=== PATIENT | male | born 1935 | race Caucasian/White ===

== ENCOUNTER 2020-01-18 17:09 | Inpatient (IN) | payer MEDICARE ==
--- NOTE | 2020-01-18 17:18 | ERPHSYRPT ---
- History of Present Illness Time Seen by Provider: 01/18/20 17:15 Source: patient, EMS Exam Limitations: clinical condition Physician History: This is an 84-year-old male who presents with several day history of weakness. The fire department has been out to this persons home several times in the past week for lift assistance only. He has fallen several times. Patient has significant cardiac health issues. Patient has a history of chronic atrial fibrillation and is on Xarelto and metoprolol for this condition. He has no primary pulmonary disease per his report. Patient became more weak and more short of air today. EMS brought the patient in and stated that they did have him walk from the home into the ambulance and when they hooked him up to the oxygen monitor his room air oxygen saturation was in the 80s. He also had a fever of approximately 100.6 F. Patient has not taken any Tylenol or aspirin. he denies chest pain, abdominal pain, nausea vomiting diarrhea. Is not aware of any individuals that he has been around that has been tested positive for COVID-19. Patient is clinically positive patient for the coronavirus. Patient is not on any home oxygen therapy. Patient's primary care physician is Dr. Mi Gunter. His piston maker is Dr. Slaughter out of [facility]. Patient's spouse told EMS that the patient had pneumonia a year ago. She states his symptoms today are very similar. Timing/Duration: day(s) (Several), worse Activities at Onset: activity Severity of Dyspnea-Max: moderate Severity of Dyspnea-Current: moderate Possible Cause: occasional episodes Modifying Factors: Improves With: activity, exertion Associated Symptoms: constant, edema, fever, No cough, No chest pain/discomfort Allergies/Adverse Reactions: No Known Drug Allergies Allergy (Unverified 01/18/20 18:28) Home Medications: Aspirin 81 gm Chew [Baby Aspirin 81 mg Chew] 81 mg PO DAILY 01/18/20 [ History] Atorvastatin Calcium 20 mg PO DAILY 01/18/20 [History] Levothyroxine Sodium 50 mcg PO DAILY 01/18/20 [History] Metoprolol Tartrate 12.5 mg PO BID 01/18/20 [History] Omeprazole 20 mg PO DAILY 01/18/20 [History] Rivaroxaban [Xarelto] 20 mg PO DAILY 01/18/20 [History] Travel Risk - International Travel Have you traveled outside of the country in past 3 weeks: No Have you or anyone close to you been diagnosed with or: No Do your reside in a community with a known COVID-19 case?: Yes - Coronavirus Screening Symptoms experienced: fever(equal or > 100.4 F), respiratory symptoms ( i.e.Cought,shortness of breath), weakness - Review of Systems Constitutional: Fever, Weakness Eyes: No Symptoms Ears, Nose, & Throat: No Symptoms Respiratory: Dyspnea, Dyspnea on Exertion ([place]EL[place]), No Stridor, No Wheezing Cardiac: Edema, No Chest Pain, No Syncope Abdominal/Gastrointestinal: No Symptoms Genitourinary Symptoms: No Symptoms Musculoskeletal: No Symptoms Skin: No Symptoms Neurological: No Symptoms Psychological: No Symptoms Endocrine: No Symptoms Hematologic/Lymphatic: No Symptoms Immunological/Allergic: No Symptoms All Other Systems: Reviewed and Negative - Past Medical History Pertinent Past Medical History: Yes Neurological History: No Pertinent History ENT History: No Pertinent History - Nursing Vital Signs Nursing Vital Signs: Initial Vital Signs Temperature 100.6 F 01/18/20 18:00 Pulse Rate 109 H 01/18/20 18:00 Respiratory Rate 22 01/18/20 18:00 Blood Pressure 115/98 01/18/20 18:00 O2 Sat by Pulse Oximetry 94 L 01/18/20 18:00 Pain Scale Pain Intensity 0 - Physical Exam SpO2 Interpretation: hypoxic - Course Nursing assessment & vital signs reviewed: Yes EKG Interpreted by Me: RATE (98), A-fib, NORMAL AXIS, NORMAL INTERVALS, Right Bundle Branch Block Ordered Tests: Active Orders 24 hr Category Date Time Status Carroting Machine Offbearer STAT Care 01/18/20 17:20 Active EKG-ER Only STAT Care 01/18/20 17:20 Active Ware [Catheter-[place] Ware] STAT Care 01/18/20 18:59 Active IV Insertion STAT Care 01/18/20 17:20 Active Isolation, Initiate & Maintain Q4H Care 01/18/20 18:26 Active Oxygen-ED Only Nasal Cannula 2 lpm Care 01/18/20 17:20 Active CHEST 1 VIEW (PORTABLE) Stat Exams 01/18/20 17:19 Completed CHEST WITH CONTRAST [CT] Stat Exams 01/18/20 18:46 Taken ARTERIAL BLOOD GASES Stat Lab 01/18/20 17:20 Completed BLOOD CULTURE Stat Lab 01/18/20 17:50 Received CBC W DIFF Stat Lab 01/18/20 17:48 Completed CMP Stat Lab 01/18/20 17:48 Completed CULTURE,URINE Stat Lab 01/18/20 19:06 Received D-DIMER QUANTITATIVE Stat Lab 01/18/20 18:10 Completed Ferritin Stat Lab 01/18/20 17:48 Completed LDH-LACTATE DEHYDROGENASE Stat Lab 01/18/20 17:48 Completed Lactic Acid Stat Lab 01/18/20 17:19 Completed NT PRO BNP Stat Lab 01/18/20 17:48 Completed PROTIME WITH INR Stat Lab 01/18/20 18:10 Completed TROPONIN Q3H Lab 01/18/20 17:48 Completed TROPONIN Q3H Lab 01/18/20 20:37 Received TROPONIN Q3H Lab 01/18/20 23:30 Ordered TROPONIN Q3H Lab 01/19/20 02:30 Ordered TROPONIN Q3H Lab 01/19/20 05:30 Ordered UA W/RFX UR CULTURE Stat Lab 01/18/20 19:06 Completed Transfer Order Routine Transfer 01/18/20 Ordered Medication Summary Generic Name Dose Route Start Last Admin Trade Name Freq PRN Reason Stop Dose Admin Ceftriaxone Sodium/Dextrose 1 g in 50 mls @ 100 mls/hr 01/18/20 20:47 Rocephin 1 Gm-D5w 50 Ml Bag IV 01/18/20 21:16 STAT STA Azithromycin 500 mg in 250 mls @ 250 mls/hr 01/18/20 20:47 Zithromax 500 Mg/ 250 Ml Nacl Premix IV 01/18/20 21:46 STAT STA Discontinued Medications Generic Name Dose Route Start Last Admin Trade Name Freq PRN Reason Stop Dose Admin Furosemide 40 mg 01/18/20 18:46 01/18/20 18:57 Lasix 40 Mg/4 Ml IV 01/18/20 18:47 40 mg STAT ONE Administration Furosemide Confirm 01/18/20 18:49 Lasix 40 Mg/4 Ml Administered 01/18/20 18:50 Dose 40 mg .ROUTE .STK-MED ONE Azithromycin Confirm 01/18/20 20:54 Zithromax 500 Mg/ 250 Ml Nacl Premix Administered 01/18/20 20:55 Dose 500 mg in 250 mls @ ud IV .STK-MED ONE Ceftriaxone Sodium/Dextrose Confirm 01/18/20 20:54 Rocephin 1 Gm-D5w 50 Ml Bag Administered 01/18/20 20:55 Dose 1 g in 50 mls @ ud IV .STK-MED ONE Lab/Rad Data: Laboratory Result Diagrams 01/18/20 17:48 01/18/20 17:48 Laboratory Results 01/18/20 01/18/20 01/18/20 Range/Units 19:06 18:10 17:50 WBC (4.0-10.5) K/mm3 RBC (4.1-5.6) M/mm3 Hgb (12.5-18.0) gm/dl Hct (42-50) % MCV (78-100) fl MCH (26-32) pg MCHC (32-36) g/dl RDW (11.5-14.0) % Plt Count (150-450) K/mm3 MPV (7.5-11.0) fl Gran % (36.0-66.0) % Eos # (Auto) (0-0.5) Absolute Lymphs (auto) (1.0-4.6) Absolute Monos (auto) (0.0-1.3) Lymphocytes % (24.0-44.0) % Monocytes % (0.0-12.0) % Eosinophils % (0.00-5.0) % Basophils % (0.0-0.4) % Absolute Granulocytes (1.4-6.9) Basophils # (0-0.4) PT 33.4 H (8.83-12.87) SECONDS INR 2.89 (0.8-3.0) D-Dimer 1575 H* (215-500) ng/mL Puncture Site pCO2 (35-45) mmHg pO2 (75-100) mmHg Base Excess (-2.0-2.0) O2 Saturation (94-100) g/dF ABG pH (7.35-7.45) ABG HCO3 (22-28) ABG O2 Sat (Measured) (95-100) % Rolando Test A-a Gradient a/A Ratio Hemoglobin Carboxyhemoglobin (0.0-6.9) % THgb Methemoglobin (1.4-1.5) % Potassium (3.5-5.1) Temperature C POC O2 Flow Rate % Sodium (137-145) mmol/L Chloride (98-107) mmol/L Carbon Dioxide (22-30) mmol/L Anion Gap (5-15) MEQ/L BUN (9-20) mg/dL Creatinine (0.66-1.25) mg/dL Estimated GFR ML/MIN Glucose (74-106) mg/dL Lactic Acid (0.4-2.0) Calcium (8.4-10.2) mg/dL Ferritin (17.9-464) ng/mL Total Bilirubin (0.2-1.3) mg/dL AST (17-59) U/L ALT (0-50) U/L Alkaline Phosphatase (38-126) U/L Lactate Dehydrogenase (120-246) U/L Troponin I (0.000-0.034) ng/mL NT-Pro-B Natriuret Pep (0-1800) pg/mL Serum Total Protein (6.3-8.2) g/dL Albumin (3.5-5.0) g/dL Urine Color TAMMY (YELLOW) Urine Appearance CLEAR (CLEAR) Urine pH 5.0 (5-6) Ur Specific [place] 1.025 (1.005-1.025) Urine Protein 30 (Negative) Urine Ketones NEGATIVE (NEGATIVE) Urine Blood SMALL (0-5) [place]/ul Urine Nitrite NEGATIVE (NEGATIVE) Urine Bilirubin NEGATIVE (NEGATIVE) Urine Urobilinogen 2 (0-1) mg/dL Ur Leukocyte Esterase NEGATIVE (NEGATIVE) Urine WBC (Auto) 0-2 (0-5) /HPF Urine RBC (Auto) 3-5 (0-2) /HPF U Hyaline Cast (Auto) 3-5 (0-2) /LPF U Epithel Cells (Auto) NONE (FEW) /HPF Urine Bacteria (Auto) RARE (NEGATIVE) /HPF Unidentified Crystals 2-5 (NEGATIVE) /HPF Urine Mucus (Auto) SLIGHT (NEGATIVE) /HPF Urine Culture Reflexed ORDERED SEPARATELY (NO) Urine Glucose NEGATIVE (NEGATIVE) mg/dL Influenza Type A Ag NEGATIVE (NEGATIVE) Influenza Type B Ag NEGATIVE (NEGATIVE) RSV (PCR) NEGATIVE (Negative) 01/18/20 01/18/20 01/18/20 Range/Units 17:48 17:48 17:48 WBC (4.0-10.5) K/mm3 RBC (4.1-5.6) M/mm3 Hgb (12.5-18.0) gm/dl Hct (42-50) % MCV (78-100) fl MCH (26-32) pg MCHC (32-36) g/dl RDW (11.5-14.0) % Plt Count (150-450) K/mm3 MPV (7.5-11.0) fl Gran % (36.0-66.0) % Eos # (Auto) (0-0.5) Absolute Lymphs (auto) (1.0-4.6) Absolute Monos (auto) (0.0-1.3) Lymphocytes % (24.0-44.0) % Monocytes % (0.0-12.0) % Eosinophils % (0.00-5.0) % Basophils % (0.0-0.4) % Absolute Granulocytes (1.4-6.9) Basophils # (0-0.4) PT (8.83-12.87) SECONDS INR (0.8-3.0) D-Dimer (215-500) ng/mL Puncture Site pCO2 (35-45) mmHg pO2 (75-100) mmHg Base Excess (-2.0-2.0) O2 Saturation (94-100) g/dF ABG pH (7.35-7.45) ABG HCO3 (22-28) ABG O2 Sat (Measured) (95-100) % Rolando Test A-a Gradient a/A Ratio Hemoglobin Carboxyhemoglobin (0.0-6.9) % THgb Methemoglobin (1.4-1.5) % Potassium 4.0 (3.5-5.1) Temperature C POC O2 Flow Rate % Sodium 142 (137-145) mmol/L Chloride 109 H (98-107) mmol/L Carbon Dioxide 25 (22-30) mmol/L Anion Gap 12.4 (5-15) MEQ/L BUN 21 H (9-20) mg/dL Creatinine 0.97 (0.66-1.25) mg/dL Estimated GFR > 60.0 ML/MIN Glucose 110 H (74-106) mg/dL Lactic Acid (0.4-2.0) Calcium 8.6 (8.4-10.2) mg/dL Ferritin 141 (17.9-464) ng/mL Total Bilirubin 1.30 (0.2-1.3) mg/dL AST 37 (17-59) U/L ALT 24 (0-50) U/L Alkaline Phosphatase 135 H (38-126) U/L Lactate Dehydrogenase 346 H (120-246) U/L Troponin I 0.035 H (0.000-0.034) ng/mL NT-Pro-B Natriuret Pep 5950 H (0-1800) pg/mL Serum Total Protein 7.3 (6.3-8.2) g/dL Albumin 3.3 L (3.5-5.0) g/dL Urine Color (YELLOW) Urine Appearance (CLEAR) Urine pH (5-6) Ur Specific [place] (1.005-1.025) Urine Protein (Negative) Urine Ketones (NEGATIVE) Urine Blood (0-5) Donta/ul Urine Nitrite (NEGATIVE) Urine Bilirubin (NEGATIVE) Urine Urobilinogen (0-1) mg/dL Ur Leukocyte Esterase (NEGATIVE) Urine WBC (Auto) (0-5) /HPF Urine RBC (Auto) (0-2) /HPF U Hyaline Cast (Auto) (0-2) /LPF U Epithel Cells (Auto) (FEW) /HPF Urine Bacteria (Auto) (NEGATIVE) /HPF Unidentified Crystals (NEGATIVE) /HPF Urine Mucus (Auto) (NEGATIVE) /HPF Urine Culture Reflexed (NO) Urine Glucose (NEGATIVE) mg/dL Influenza Type A Ag (NEGATIVE) Influenza Type B Ag (NEGATIVE) RSV (PCR) (Negative) 01/18/20 01/18/20 01/18/20 Range/Units 17:48 17:20 17:19 WBC 12.8 H (4.0-10.5) K/mm3 RBC 3.55 L (4.1-5.6) M/mm3 Hgb 10.3 L (12.5-18.0) gm/dl Hct 33.5 L (42-50) % MCV 94.4 (78-100) fl MCH 29.0 (26-32) pg MCHC 30.7 L (32-36) g/dl RDW 14.9 H (11.5-14.0) % Plt Count 329 (150-450) K/mm3 MPV 9.7 (7.5-11.0) fl Gran % 89.0 H (36.0-66.0) % Eos # (Auto) 0.01 (0-0.5) Absolute Lymphs (auto) 0.35 L (1.0-4.6) Absolute Monos (auto) 1.03 (0.0-1.3) Lymphocytes % 2.7 L (24.0-44.0) % Monocytes % 8.0 (0.0-12.0) % Eosinophils % 0.1 (0.00-5.0) % Basophils % 0.2 (0.0-0.4) % Absolute Granulocytes 11.38 H (1.4-6.9) Basophils # 0.03 (0-0.4) PT (8.83-12.87) SECONDS INR (0.8-3.0) D-Dimer (215-500) ng/mL Puncture Site LEFT BRACHIAL pCO2 25 L (35-45) mmHg pO2 68 L (75-100) mmHg Base Excess 0.3 (-2.0-2.0) O2 Saturation 91.7 L (94-100) g/dF ABG pH 7.54 H (7.35-7.45) ABG HCO3 21.4 L (22-28) ABG O2 Sat (Measured) 96.3 (95-100) % Rolando Test NOT APPLICABLE A-a Gradient 214 a/A Ratio 0.24 Hemoglobin 10.2 Carboxyhemoglobin 3.2 (0.0-6.9) % THgb Methemoglobin 1.5 (1.4-1.5) % Potassium 4.1 (3.5-5.1) Temperature 37.0 C POC O2 Flow Rate 44 % Sodium (137-145) mmol/L Chloride (98-107) mmol/L Carbon Dioxide (22-30) mmol/L Anion Gap (5-15) MEQ/L BUN (9-20) mg/dL Creatinine (0.66-1.25) mg/dL Estimated GFR ML/MIN Glucose (74-106) mg/dL Lactic Acid 1.1 (0.4-2.0) Calcium (8.4-10.2) mg/dL Ferritin (17.9-464) ng/mL Total Bilirubin (0.2-1.3) mg/dL AST (17-59) U/L ALT (0-50) U/L Alkaline Phosphatase (38-126) U/L Lactate Dehydrogenase (120-246) U/L Troponin I (0.000-0.034) ng/mL NT-Pro-B Natriuret Pep (0-1800) pg/mL Serum Total Protein (6.3-8.2) g/dL Albumin (3.5-5.0) g/dL Urine Color (YELLOW) Urine Appearance (CLEAR) Urine pH (5-6) Ur Specific [place] (1.005-1.025) Urine Protein (Negative) Urine Ketones (NEGATIVE) Urine Blood (0-5) Donta/ul Urine Nitrite (NEGATIVE) Urine Bilirubin (NEGATIVE) Urine Urobilinogen (0-1) mg/dL Ur Leukocyte Esterase (NEGATIVE) Urine WBC (Auto) (0-5) /HPF Urine RBC (Auto) (0-2) /HPF U Hyaline Cast (Auto) (0-2) /LPF U Epithel Cells (Auto) (FEW) /HPF Urine Bacteria (Auto) (NEGATIVE) /HPF Unidentified Crystals (NEGATIVE) /HPF Urine Mucus (Auto) (NEGATIVE) /HPF Urine Culture Reflexed (NO) Urine Glucose (NEGATIVE) mg/dL Influenza Type A Ag (NEGATIVE) Influenza Type B Ag (NEGATIVE) RSV (PCR) (Negative) - Progress Progress: improved Air Movement: fair Progress Note: 01/18/20 17:44 Chest x-ray shows bilateral infiltrate with right side worse than left. There appears to be mild cardiomegaly with fluid present as well. 01/18/20 20:50 CAT scan of the chest with IV contrast reveals patchy bilateral groundglass densities and consolidation in a peripheral distribution suggestive of viral pneumonia. There is small bilateral pleural effusions. Impressions shows findings consistent with COVID-19 pneumonia. No evidence of pulmonary emboli. Medical decision making: This patient was discussed with Dr. Gupta. Patient has CAT scan findings consistent with a viral pneumonia/COVID-19 pneumonia. Clinically, the patient has symptoms consistent with viral pneumonia as well. I reviewed the patient history, condition, laboratory data, EKG, radiology reports with him. He wants to start the patient on Rocephin and azithromycin intravenously. Some of the patient's that have a presented with COVID-19 symptoms of actually turned out to be bacterial pneumonia rather than viral pneumonia. I discussed in detail with the patient regarding his results. I discussed with him his DNR status. Patient is DNR. He does not want to be intubated, he does not want any form of mechanical ventilation, he does not want CPR or defibrillation. Laurie these issues with the patient spouse as well. Blood Culture(s) Obtained: Yes Antibiotics given: Yes Discussed with Dr.: Hess Counseled pt/family regarding: lab results, diagnosis, rad results - Departure Departure Disposition: In-patient Admission Clinical Impression: Suspected COVID-19 virus infection, Hypoxia, Pneumonia, Congestive heart failure Condition: Fair Critical Care Time: Yes Critical Care Time(excluding separately billable procedures): Critical 75-104 mins Referrals: MI GUNTER DO [Primary Care Provider] - Instructions: Heart Failure
[2020-01-18 17:46] LABS: A-aADO2 214; ABG HEMOGLOBIN 10.2; ABG POTASSIUM 4.1 (3.5-5.1); ABG SITE LEFT BRACHIAL; ARTERIAL BLD GAS O2 SATURATION 96.3 % (95-100); ARTERIAL BLOOD GAS BASE EXCESS 0.3 (-2.0-2.0); ARTERIAL BLOOD GAS FIO2 44 %; ARTERIAL BLOOD GAS PCO2 25 mmHg (35-45); ARTERIAL BLOOD GAS PO2 68 mmHg (75-100); ARTERIAL BLOOD GAS pH 7.54 (7.35-7.45); CARBOXYHEMOGLOBIN 3.2 % THgb (0.0-6.9); HCO3- 21.4 (22-28); HGB O2 SAT 91.7 g/dF (94-100); Methhemoglobin 1.5 % (1.4-1.5); paO2 pAO1 0.24
[2020-01-18 17:54] LABS: Absolute Neutrophil Ct (ANC) 11.38 (1.4-6.9); BASOPHIL % 0.2 % (0.0-0.4); Basophil (Absolute #) 0.03 (0-0.4); Eosinophil % 0.1 % (0.00-5.0); Eosinophil (Absolute #) 0.01 (0-0.5); Hematocrit 33.5 % (42-50); Hemoglobin 10.3 gm/dl (12.5-18.0); Lymphocyte (Absolute #) 0.35 (1.0-4.6); Lymphocytes % 2.7 % (24.0-44.0); Mean Cell Volume 94.4 fl (78-100); Mean Corpuscular Hgb Concent. 30.7 g/dl (32-36); Mean Platelet Volume 9.7 fl (7.5-11.0); Monocyte (Absolute #) 1.03 (0.0-1.3); Platelet Count 329 K/mm3 (150-450); Red Blood Count 3.55 M/mm3 (4.1-5.6); Red Cell Distribution Width 14.9 % (11.5-14.0); White Blood Count 12.8 K/mm3 (4.0-10.5)
[2020-01-18 18:15] LABS: ALBUMIN 3.3 g/dL (3.5-5.0); ALKALINE PHOSPHATASE 135 U/L (38-126); ANION GAP 12.4 MEQ/L (5-15); BLOOD UREA NITROGEN 21 mg/dL (9-20); CHLORIDE 109 mmol/L (98-107); Calcium 8.6 mg/dL (8.4-10.2); Carbon Dioxide 25 mmol/L (22-30); Creatinine 1 0.97 mg/dL (0.66-1.25); Glucose 110 mg/dL (74-106); LDH-LACTATE DEHYDROGENASE 346 U/L (120-246); NT PRO BNP 5950 pg/mL (0-1800); SGOT/AST 37 U/L (17-59); SGPT/ALT 24 U/L (0-50); SODIUM 142 mmol/L (137-145); Total Protein 7.3 g/dL (6.3-8.2)
[2020-01-18 18:24] LABS: INFLUENZA A NEGATIVE (NEGATIVE); INFLUENZA B NEGATIVE (NEGATIVE); RESPIRATORY SYNCTIAL VIRUS NEGATIVE (Negative)
[2020-01-18 18:27] LABS: INR 2.89 (0.8-3.0); PROTIME 33.4 SECONDS (8.83-12.87)
[2020-01-18] MEDS ORDERED: Lasix 40 MG/4 ML IV ONE (18:46)
[2020-01-18] MEDS ORDERED: Lasix 40 MG/4 ML ONE (18:49)
[2020-01-18 19:27] LABS: Appearance CLEAR (CLEAR); Bacteria RARE /HPF (NEGATIVE); Bilirubin NEGATIVE (NEGATIVE); Blood SMALL Ery/ul (0-5); Glucose NEGATIVE (NEGATIVE); Ketones NEGATIVE (NEGATIVE); Leukocyte Esterase NEGATIVE (NEGATIVE); Mucus SLIGHT /HPF (NEGATIVE); Nitrite NEGATIVE (NEGATIVE); Protein,Urine Dip 30 (Negative); Specific Gravity 1.025 (1.005-1.025); Urobilinogen 2 mg/dL (0-1); WBC 0-2 /HPF (0-5)
--- NOTE | 2020-01-18 20:15 | XRAY ---
Indication: Short of breath and fever. Suspect COVID 19. Comparison: None Portable chest demonstrates diffuse bilateral airspace disease, right greater than left. No large effusion. Heart is borderline enlarged with chunky mediastinal calcified nodes. Bony thorax demonstrates mild osteopenia, moderate degenerative changes, moderate dextrorotoscoliosis, and right shoulder arthroplasty Impression: Diffuse bilateral airspace disease.
[2020-01-18] MEDS ORDERED: Zithromax 500 MG/ 250 ML NaCl Premix 500 MG/250 ML IVPB IV STA (20:47)
[2020-01-18] MEDS ORDERED: ROCEPHIN 1 Gm-D5w 50 ml Bag** 1 G/50 ML IVPB IV STA (20:47)
[2020-01-18] MEDS ORDERED: ROCEPHIN 1 Gm-D5w 50 ml Bag** 1 G/50 ML IVPB IV ONE (20:54)
[2020-01-18] MEDS ORDERED: Zithromax 500 MG/ 250 ML NaCl Premix 500 MG/250 ML IVPB IV ONE (20:54)
[2020-01-18] MEDS ORDERED: Zofran 4 MG/2 ML VIAL IV PRN (23:05)
[2020-01-18] MEDS ORDERED: VENTOLIN COMMON CANISTER IH PRN (23:05)
[2020-01-18] MEDS ORDERED: TYLENOL 325 MG PO PRN (23:05)
[2020-01-19] MEDS: Lasix 40 MG/4 ML IV SCH ×3 (01:57→23:27)
[2020-01-19 05:58] LABS: A-aADO2 207; ABG HEMOGLOBIN 10.2; ABG POTASSIUM 3.6 (3.5-5.1); ABG SITE LEFT BRACHIAL; ARTERIAL BLD GAS O2 SATURATION 96.1 % (95-100); ARTERIAL BLOOD GAS FIO2 44 %; ARTERIAL BLOOD GAS PCO2 29 mmHg (35-45); ARTERIAL BLOOD GAS PO2 70 mmHg (75-100); ARTERIAL BLOOD GAS pH 7.51 (7.35-7.45); CARBOXYHEMOGLOBIN 1.5 % THgb (0.0-6.9); HCO3- 23.1 (22-28); HGB O2 SAT 93.6 g/dF (94-100); Methhemoglobin 1.1 % (1.4-1.5); paO2 pAO1 0.25
[2020-01-19 06:13] LABS: ALBUMIN 2.7 g/dL (3.5-5.0); ALKALINE PHOSPHATASE 116 U/L (38-126); ANION GAP 12.3 MEQ/L (5-15); BLOOD UREA NITROGEN 18 mg/dL (9-20); CHLORIDE 106 mmol/L (98-107); Calcium 8.2 mg/dL (8.4-10.2); Carbon Dioxide 26 mmol/L (22-30); Creatinine 1 0.88 mg/dL (0.66-1.25); Glucose 89 mg/dL (74-106); NT PRO BNP 5660 pg/mL (0-1800); PREALBUMIN 6.51 mg/dL (17.6-36.0); Potassium 3.7 mmol/L (3.5-5.1); SGOT/AST 47 U/L (17-59); SGPT/ALT 26 U/L (0-50); SODIUM 141 mmol/L (137-145); Total Protein 6.3 g/dL (6.3-8.2)
[2020-01-19 06:18] LABS: Absolute Neutrophil Ct (ANC) 9.98 (1.4-6.9); BASOPHIL % 0.2 % (0.0-0.4); Basophil (Absolute #) 0.03 (0-0.4); Eosinophil % 0.8 % (0.00-5.0); Hematocrit 33.1 % (42-50); Hemoglobin 10.2 gm/dl (12.5-18.0); Lymphocyte (Absolute #) 0.99 (1.0-4.6); Lymphocytes % 8.2 % (24.0-44.0); Mean Cell Volume 94.3 fl (78-100); Mean Corpuscular Hemoglobin 29.1 pg (26-32); Mean Corpuscular Hgb Concent. 30.8 g/dl (32-36); Mean Platelet Volume 10.1 fl (7.5-11.0); Monocyte (Absolute #) 1.03 (0.0-1.3); Monocytes % 8.5 % (0.0-12.0); Neutrophil % 82.3 % (36.0-66.0); Platelet Count 331 K/mm3 (150-450); Red Blood Count 3.51 M/mm3 (4.1-5.6); Red Cell Distribution Width 14.9 % (11.5-14.0); White Blood Count 12.1 K/mm3 (4.0-10.5)
--- NOTE | 2020-01-19 08:13 | XRAY ---
Indication: Fever and weakness. Pneumonia. Suspect: COVID 19. Multiple contiguous axial images obtained through the chest using 80 cc Isovue 370 contrast and PE protocol. Elevated d-dimer. Comparison: None There is good opacification of the pulmonary arteries to include the lobar and segmental branches. No filling defect/pulmonary embolus. Heart is enlarged. Aorta is mildly arteriosclerotic without aneurysm/dissection. [place] paratracheal calcified nodes. No pathologic lymphadenopathy. Large hiatal hernia with intrathoracic stomach. Lungs demonstrates diffuse bilateral patchy non-rounded airspace opacities, several appearing consolidated. This is greatest throughout the right lung along with small right effusion. Lung features can be seen with COVID 19 pneumonia, though are nonspecific and can occur with a variety of infectious and noninfectious processes. Medial left lower lobe compressive atelectasis secondary to large hiatal hernia. Bony thorax demonstrates osteopenia, outside to moderate multilevel degenerative spondylosis, moderate dextrorotoscoliosis centered at T10, right shoulder arthroplasty, and moderate/advanced left shoulder degenerative arthropathy. Limited upper abdomen demonstrates multiple round hypodense lesions favoring cysts, largest 2.8 cm in the inferior right lobe. Also splenic calcified granulomas. Impression: 1. Negative pulmonary embolus. 2. Diffuse bilateral non-rounded airspace opacities with multifocal consolidations and small right effusion. Findings can occur with a variety of infectious and noninfectious processes. COVID 19 imaging classification per Society of Thoracic Radiology/ACR/RSNA is Indeterminate Appearance. 3. Incidental cardiomegaly, large hiatal hernia with intrathoracic stomach, hepatic cysts, chronic bony findings, and evidence for old granulomatous disease. Comment: Preliminary interpretation was made by [facility]. No critical discrepancy.
--- NOTE | 2020-01-19 09:48 | PCM.HP ---
History of Present Illness - Chief Complaint Chief Complaint: Covid R/O, CHF, Pneumonia Date: 01/19/20 History of Present Illness: is a 84 year old male. Presented to ER last night with increased weakness for the past several days, noted to have a temp as well. Pt. notes mild sob, otherwise mostly negative ros. - Review of Systems Constitutional: Fever Eyes: No Symptoms Ears, Nose, & Throat: No Symptoms Respiratory: Short Of Breath Cardiac: No Chest Pain, No Edema, No Syncope Abdominal/Gastrointestinal: No Abdominal Pain, No Nausea, No Vomiting, No Diarrhea Genitourinary Symptoms: No Dysuria Musculoskeletal: Joint Pain Skin: No Rash Neurological: No Dizziness, No Focal Weakness, No Sensory Changes Medications & Allergies Home Medications: Home Medication List Aspirin 81 gm Chew [Baby Aspirin 81 mg Chew] 81 mg PO DAILY 01/18/20 [ History Confirmed 01/18/20] Atorvastatin Calcium 20 mg PO DAILY 01/18/20 [History Confirmed 01/18/20] Levothyroxine Sodium 50 mcg PO DAILY 01/18/20 [History Confirmed 01/18/20] Metoprolol Tartrate 12.5 mg PO BID 01/18/20 [History Confirmed 01/18/20] Omeprazole 20 mg PO DAILY 01/18/20 [History Confirmed 01/18/20] Rivaroxaban [Xarelto] 20 mg PO DAILY 01/18/20 [History Confirmed 01/18/20] Amiodarone HCl 01/19/20 [History] Benazepril/Hydrochlorothiazide [Benazepril-Hctz 5-6.25 mg Tab] 01/19/20 [ History] Allergies/Adverse Reactions: Allergies Allergy/AdvReac Type Severity Reaction Status Date / Time No Known Drug Allergies Allergy Unverified 01/19/20 02:44 - Past Medical History Past Medical History: Yes Neurological History: No Pertinent History ENT History: No Pertinent History Cardiac History: Arrhythmia, Coronary Artery Disease Respiratory History: Pneumonia Musculoskelatal History: Arthritis GI Medical History: No Pertinent History History: No Pertinent History Pyscho-Social History: No Pertinent History Male Reproductive Disorders: No Pertinent History Comment: Chronic A-fib, History of recurrent Pneumonia - Past Surgical History Past Surgical History: Yes Neuro Surgical History: No Pertinent History Cardiac History: Cardiac Catheterization Respiratory Surgery: No Pertinent History GI Surgical History: Appendectomy Genitourinary Surgical Hx: No Pertinent History Musculskeletal Surgical Hx: Joint Replacement Male Surgical History: No Pertinent History Other Surgical History: Total left hip replacement, right shoulder replacement. - Social History Smoking Status: Former smoker Exposure to second hand smoke: No Alcohol: None Drug Use: none - Physical Exam Vital Signs: Vital Signs - 24 hr Temp Pulse Resp BP Pulse Ox 01/19/20 09:33 105 H 27 H 97 01/19/20 09:00 30 H 01/19/20 08:20 104 H 22 95 01/19/20 08:00 24 01/19/20 07:41 99.0 F 136 H 24 146/86 94 L 01/19/20 06:45 26 H 01/19/20 06:00 22 01/19/20 05:00 22 01/19/20 04:59 113 H 22 91 L 01/19/20 04:00 25 H 01/19/20 03:57 98.3 F 108 H 25 H 162/88 90 L 01/19/20 02:44 24 01/19/20 01:59 107 H 23 98 01/19/20 01:52 24 01/19/20 01:17 100.0 F 111 H 30 H 119/82 92 L 01/19/20 00:15 111 H 30 H 92 L 01/18/20 23:09 100.0 F 111 H 20 119/82 96 01/18/20 23:05 92 L 01/18/20 22:11 107 H 18 105/80 94 L 01/18/20 21:13 99.9 F 123 H 30 H 118/94 94 L 01/18/20 20:26 99.9 F 135 H 25 H 161/92 96 01/18/20 18:47 100.8 F 119 H 22 130/98 100 01/18/20 18:09 22 94 L 01/18/20 18:00 100.6 F 109 H 22 115/98 94 L Oxygen-Last 24 hours Oxygen Flowrate (L/min)-RT 15 Oxygen Flowrate (L/min)-RT 6 General Appearance: mild distress Neurologic Exam: alert, cooperative Eye Exam: eyes nml inspection Ears, Nose, Throat Exam: normal ENT inspection, pharynx normal, moist mucous membranes Neck Exam: normal inspection Respiratory Exam: diminished breath sounds, crackles/rales, rhonchi Cardiovascular Exam: tachycardia, irregular Gastrointestinal/Abdomen Exam: soft, normal bowel sounds, No tenderness, No distention Rectal Exam: deferred Extremity Exam: pedal edema Results - Labs Lab/Micro Results: Lab Results-Last 24 Hours 01/18/20 01/18/20 01/18/20 Range/Units 17:19 17:20 17:48 WBC 12.8 H (4.0-10.5) K/mm3 RBC 3.55 L (4.1-5.6) M/mm3 Hgb 10.3 L (12.5-18.0) gm/dl Hct 33.5 L (42-50) % MCV 94.4 (78-100) fl MCH 29.0 (26-32) pg MCHC 30.7 L (32-36) g/dl RDW 14.9 H (11.5-14.0) % Plt Count 329 (150-450) K/mm3 MPV 9.7 (7.5-11.0) fl Gran % 89.0 H (36.0-66.0) % Eos # (Auto) 0.01 (0-0.5) Absolute Lymphs (auto) 0.35 L (1.0-4.6) Absolute Monos (auto) 1.03 (0.0-1.3) Lymphocytes % 2.7 L (24.0-44.0) % Monocytes % 8.0 (0.0-12.0) % Eosinophils % 0.1 (0.00-5.0) % Basophils % 0.2 (0.0-0.4) % Absolute Granulocytes 11.38 H (1.4-6.9) Basophils # 0.03 (0-0.4) PT (8.83-12.87) SECONDS INR (0.8-3.0) D-Dimer (215-500) ng/mL Puncture Site LEFT BRACHIAL pCO2 25 L (35-45) mmHg pO2 68 L (75-100) mmHg Base Excess 0.3 (-2.0-2.0) O2 Saturation 91.7 L (94-100) g/dF ABG pH 7.54 H (7.35-7.45) ABG HCO3 21.4 L (22-28) ABG O2 Sat (Measured) 96.3 (95-100) % Rolando Test NOT APPLICABLE A-a Gradient 214 a/A Ratio 0.24 Hemoglobin 10.2 Carboxyhemoglobin 3.2 (0.0-6.9) % THgb Methemoglobin 1.5 (1.4-1.5) % Potassium 4.1 (3.5-5.1) Temperature 37.0 C POC O2 Flow Rate 44 % Sodium (137-145) mmol/L Chloride (98-107) mmol/L Carbon Dioxide (22-30) mmol/L Anion Gap (5-15) MEQ/L BUN (9-20) mg/dL Creatinine (0.66-1.25) mg/dL Estimated GFR ML/MIN Glucose (74-106) mg/dL Lactic Acid 1.1 (0.4-2.0) Calcium (8.4-10.2) mg/dL Ferritin (17.9-464) ng/mL Total Bilirubin (0.2-1.3) mg/dL AST (17-59) U/L ALT (0-50) U/L Alkaline Phosphatase (38-126) U/L Lactate Dehydrogenase (120-246) U/L Troponin I (0.000-0.034) ng/mL NT-Pro-B Natriuret Pep (0-1800) pg/mL Serum Total Protein (6.3-8.2) g/dL Albumin (3.5-5.0) g/dL Prealbumin (17.6-36.0) mg/dL Urine Color (YELLOW) Urine Appearance (CLEAR) Urine pH (5-6) Ur Specific Marissa (1.005-1.025) Urine Protein (Negative) Urine Ketones (NEGATIVE) Urine Blood (0-5) Donta/ul Urine Nitrite (NEGATIVE) Urine Bilirubin (NEGATIVE) Urine Urobilinogen (0-1) mg/dL Ur Leukocyte Esterase (NEGATIVE) Urine WBC (Auto) (0-5) /HPF Urine RBC (Auto) (0-2) /HPF U Hyaline Cast (Auto) (0-2) /LPF U Epithel Cells (Auto) (FEW) /HPF Urine Bacteria (Auto) (NEGATIVE) /HPF Unidentified Crystals (NEGATIVE) /HPF Urine Mucus (Auto) (NEGATIVE) /HPF Urine Culture Reflexed (NO) Urine Glucose (NEGATIVE) mg/dL Influenza Type A Ag (NEGATIVE) Influenza Type B Ag (NEGATIVE) RSV (PCR) (Negative) 01/18/20 01/18/20 01/18/20 Range/Units 17:48 17:48 17:48 WBC (4.0-10.5) K/mm3 RBC (4.1-5.6) M/mm3 Hgb (12.5-18.0) gm/dl Hct (42-50) % MCV (78-100) fl MCH (26-32) pg MCHC (32-36) g/dl RDW (11.5-14.0) % Plt Count (150-450) K/mm3 MPV (7.5-11.0) fl Gran % (36.0-66.0) % Eos # (Auto) (0-0.5) Absolute Lymphs (auto) (1.0-4.6) Absolute Monos (auto) (0.0-1.3) Lymphocytes % (24.0-44.0) % Monocytes % (0.0-12.0) % Eosinophils % (0.00-5.0) % Basophils % (0.0-0.4) % Absolute Granulocytes (1.4-6.9) Basophils # (0-0.4) PT (8.83-12.87) SECONDS INR (0.8-3.0) D-Dimer (215-500) ng/mL Puncture Site pCO2 (35-45) mmHg pO2 (75-100) mmHg Base Excess (-2.0-2.0) O2 Saturation (94-100) g/dF ABG pH (7.35-7.45) ABG HCO3 (22-28) ABG O2 Sat (Measured) (95-100) % Rolando Test A-a Gradient a/A Ratio Hemoglobin Carboxyhemoglobin (0.0-6.9) % THgb Methemoglobin (1.4-1.5) % Potassium 4.0 (3.5-5.1) Temperature C POC O2 Flow Rate % Sodium 142 (137-145) mmol/L Chloride 109 H (98-107) mmol/L Carbon Dioxide 25 (22-30) mmol/L Anion Gap 12.4 (5-15) MEQ/L BUN 21 H (9-20) mg/dL Creatinine 0.97 (0.66-1.25) mg/dL Estimated GFR > 60.0 ML/MIN Glucose 110 H (74-106) mg/dL Lactic Acid (0.4-2.0) Calcium 8.6 (8.4-10.2) mg/dL Ferritin 141 (17.9-464) ng/mL Total Bilirubin 1.30 (0.2-1.3) mg/dL AST 37 (17-59) U/L ALT 24 (0-50) U/L Alkaline Phosphatase 135 H (38-126) U/L Lactate Dehydrogenase 346 H (120-246) U/L Troponin I 0.035 H (0.000-0.034) ng/mL NT-Pro-B Natriuret Pep 5950 H (0-1800) pg/mL Serum Total Protein 7.3 (6.3-8.2) g/dL Albumin 3.3 L (3.5-5.0) g/dL Prealbumin (17.6-36.0) mg/dL Urine Color (YELLOW) Urine Appearance (CLEAR) Urine pH (5-6) Ur Specific Marissa (1.005-1.025) Urine Protein (Negative) Urine Ketones (NEGATIVE) Urine Blood (0-5) Donta/ul Urine Nitrite (NEGATIVE) Urine Bilirubin (NEGATIVE) Urine Urobilinogen (0-1) mg/dL Ur Leukocyte Esterase (NEGATIVE) Urine WBC (Auto) (0-5) /HPF Urine RBC (Auto) (0-2) /HPF U Hyaline Cast (Auto) (0-2) /LPF U Epithel Cells (Auto) (FEW) /HPF Urine Bacteria (Auto) (NEGATIVE) /HPF Unidentified Crystals (NEGATIVE) /HPF Urine Mucus (Auto) (NEGATIVE) /HPF Urine Culture Reflexed (NO) Urine Glucose (NEGATIVE) mg/dL Influenza Type A Ag (NEGATIVE) Influenza Type B Ag (NEGATIVE) RSV (PCR) (Negative) 01/18/20 01/18/20 01/18/20 Range/Units 17:50 18:10 19:06 WBC (4.0-10.5) K/mm3 RBC (4.1-5.6) M/mm3 Hgb (12.5-18.0) gm/dl Hct (42-50) % MCV (78-100) fl MCH (26-32) pg MCHC (32-36) g/dl RDW (11.5-14.0) % Plt Count (150-450) K/mm3 MPV (7.5-11.0) fl Gran % (36.0-66.0) % Eos # (Auto) (0-0.5) Absolute Lymphs (auto) (1.0-4.6) Absolute Monos (auto) (0.0-1.3) Lymphocytes % (24.0-44.0) % Monocytes % (0.0-12.0) % Eosinophils % (0.00-5.0) % Basophils % (0.0-0.4) % Absolute Granulocytes (1.4-6.9) Basophils # (0-0.4) PT 33.4 H (8.83-12.87) SECONDS INR 2.89 (0.8-3.0) D-Dimer 1575 H* (215-500) ng/mL Puncture Site pCO2 (35-45) mmHg pO2 (75-100) mmHg Base Excess (-2.0-2.0) O2 Saturation (94-100) g/dF ABG pH (7.35-7.45) ABG HCO3 (22-28) ABG O2 Sat (Measured) (95-100) % Rolando Test A-a Gradient a/A Ratio Hemoglobin Carboxyhemoglobin (0.0-6.9) % THgb Methemoglobin (1.4-1.5) % Potassium (3.5-5.1) Temperature C POC O2 Flow Rate % Sodium (137-145) mmol/L Chloride (98-107) mmol/L Carbon Dioxide (22-30) mmol/L Anion Gap (5-15) MEQ/L BUN (9-20) mg/dL Creatinine (0.66-1.25) mg/dL Estimated GFR ML/MIN Glucose (74-106) mg/dL Lactic Acid (0.4-2.0) Calcium (8.4-10.2) mg/dL Ferritin (17.9-464) ng/mL Total Bilirubin (0.2-1.3) mg/dL AST (17-59) U/L ALT (0-50) U/L Alkaline Phosphatase (38-126) U/L Lactate Dehydrogenase (120-246) U/L Troponin I (0.000-0.034) ng/mL NT-Pro-B Natriuret Pep (0-1800) pg/mL Serum Total Protein (6.3-8.2) g/dL Albumin (3.5-5.0) g/dL Prealbumin (17.6-36.0) mg/dL Urine Color TAMMY (YELLOW) Urine Appearance CLEAR (CLEAR) Urine pH 5.0 (5-6) Ur Specific Marissa 1.025 (1.005-1.025) Urine Protein 30 (Negative) Urine Ketones NEGATIVE (NEGATIVE) Urine Blood SMALL (0-5) Donta/ul Urine Nitrite NEGATIVE (NEGATIVE) Urine Bilirubin NEGATIVE (NEGATIVE) Urine Urobilinogen 2 (0-1) mg/dL Ur Leukocyte Esterase NEGATIVE (NEGATIVE) Urine WBC (Auto) 0-2 (0-5) /HPF Urine RBC (Auto) 3-5 (0-2) /HPF U Hyaline Cast (Auto) 3-5 (0-2) /LPF U Epithel Cells (Auto) NONE (FEW) /HPF Urine Bacteria (Auto) RARE (NEGATIVE) /HPF Unidentified Crystals 2-5 (NEGATIVE) /HPF Urine Mucus (Auto) SLIGHT (NEGATIVE) /HPF Urine Culture Reflexed ORDERED SEPARATELY (NO) Urine Glucose NEGATIVE (NEGATIVE) mg/dL Influenza Type A Ag NEGATIVE (NEGATIVE) Influenza Type B Ag NEGATIVE (NEGATIVE) RSV (PCR) NEGATIVE (Negative) 01/18/20 01/18/20 01/19/20 Range/Units 20:37 23:39 02:30 WBC (4.0-10.5) K/mm3 RBC (4.1-5.6) M/mm3 Hgb (12.5-18.0) gm/dl Hct (42-50) % MCV (78-100) fl MCH (26-32) pg MCHC (32-36) g/dl RDW (11.5-14.0) % Plt Count (150-450) K/mm3 MPV (7.5-11.0) fl Gran % (36.0-66.0) % Eos # (Auto) (0-0.5) Absolute Lymphs (auto) (1.0-4.6) Absolute Monos (auto) (0.0-1.3) Lymphocytes % (24.0-44.0) % Monocytes % (0.0-12.0) % Eosinophils % (0.00-5.0) % Basophils % (0.0-0.4) % Absolute Granulocytes (1.4-6.9) Basophils # (0-0.4) PT (8.83-12.87) SECONDS INR (0.8-3.0) D-Dimer (215-500) ng/mL Puncture Site pCO2 (35-45) mmHg pO2 (75-100) mmHg Base Excess (-2.0-2.0) O2 Saturation (94-100) g/dF ABG pH (7.35-7.45) ABG HCO3 (22-28) ABG O2 Sat (Measured) (95-100) % Rolando Test A-a Gradient a/A Ratio Hemoglobin Carboxyhemoglobin (0.0-6.9) % THgb Methemoglobin (1.4-1.5) % Potassium (3.5-5.1) Temperature C POC O2 Flow Rate % Sodium (137-145) mmol/L Chloride (98-107) mmol/L Carbon Dioxide (22-30) mmol/L Anion Gap (5-15) MEQ/L BUN (9-20) mg/dL Creatinine (0.66-1.25) mg/dL Estimated GFR ML/MIN Glucose (74-106) mg/dL Lactic Acid (0.4-2.0) Calcium (8.4-10.2) mg/dL Ferritin (17.9-464) ng/mL Total Bilirubin (0.2-1.3) mg/dL AST (17-59) U/L ALT (0-50) U/L Alkaline Phosphatase (38-126) U/L Lactate Dehydrogenase (120-246) U/L Troponin I 0.038 H* 0.039 H* 0.030 (0.000-0.034) ng/mL NT-Pro-B Natriuret Pep (0-1800) pg/mL Serum Total Protein (6.3-8.2) g/dL Albumin (3.5-5.0) g/dL Prealbumin (17.6-36.0) mg/dL Urine Color (YELLOW) Urine Appearance (CLEAR) Urine pH (5-6) Ur Specific Marissa (1.005-1.025) Urine Protein (Negative) Urine Ketones (NEGATIVE) Urine Blood (0-5) Donta/ul Urine Nitrite (NEGATIVE) Urine Bilirubin (NEGATIVE) Urine Urobilinogen (0-1) mg/dL Ur Leukocyte Esterase (NEGATIVE) Urine WBC (Auto) (0-5) /HPF Urine RBC (Auto) (0-2) /HPF U Hyaline Cast (Auto) (0-2) /LPF U Epithel Cells (Auto) (FEW) /HPF Urine Bacteria (Auto) (NEGATIVE) /HPF Unidentified Crystals (NEGATIVE) /HPF Urine Mucus (Auto) (NEGATIVE) /HPF Urine Culture Reflexed (NO) Urine Glucose (NEGATIVE) mg/dL Influenza Type A Ag (NEGATIVE) Influenza Type B Ag (NEGATIVE) RSV (PCR) (Negative) 01/19/20 01/19/20 01/19/20 Range/Units 05:25 05:25 05:25 WBC 12.1 H (4.0-10.5) K/mm3 RBC 3.51 L (4.1-5.6) M/mm3 Hgb 10.2 L (12.5-18.0) gm/dl Hct 33.1 L (42-50) % MCV 94.3 (78-100) fl MCH 29.1 (26-32) pg MCHC 30.8 L (32-36) g/dl RDW 14.9 H (11.5-14.0) % Plt Count 331 (150-450) K/mm3 MPV 10.1 (7.5-11.0) fl Gran % 82.3 H (36.0-66.0) % Eos # (Auto) 0.10 (0-0.5) Absolute Lymphs (auto) 0.99 L (1.0-4.6) Absolute Monos (auto) 1.03 (0.0-1.3) Lymphocytes % 8.2 L (24.0-44.0) % Monocytes % 8.5 (0.0-12.0) % Eosinophils % 0.8 (0.00-5.0) % Basophils % 0.2 (0.0-0.4) % Absolute Granulocytes 9.98 H (1.4-6.9) Basophils # 0.03 (0-0.4) PT (8.83-12.87) SECONDS INR (0.8-3.0) D-Dimer (215-500) ng/mL Puncture Site pCO2 (35-45) mmHg pO2 (75-100) mmHg Base Excess (-2.0-2.0) O2 Saturation (94-100) g/dF ABG pH (7.35-7.45) ABG HCO3 (22-28) ABG O2 Sat (Measured) (95-100) % Rolando Test A-a Gradient a/A Ratio Hemoglobin Carboxyhemoglobin (0.0-6.9) % THgb Methemoglobin (1.4-1.5) % Potassium 3.7 (3.5-5.1) Temperature C POC O2 Flow Rate % Sodium 141 (137-145) mmol/L Chloride 106 (98-107) mmol/L Carbon Dioxide 26 (22-30) mmol/L Anion Gap 12.3 (5-15) MEQ/L BUN 18 (9-20) mg/dL Creatinine 0.88 (0.66-1.25) mg/dL Estimated GFR > 60.0 ML/MIN Glucose 89 (74-106) mg/dL Lactic Acid (0.4-2.0) Calcium 8.2 L (8.4-10.2) mg/dL Ferritin (17.9-464) ng/mL Total Bilirubin 1.00 (0.2-1.3) mg/dL AST 47 (17-59) U/L ALT 26 (0-50) U/L Alkaline Phosphatase 116 (38-126) U/L Lactate Dehydrogenase (120-246) U/L Troponin I 0.032 (0.000-0.034) ng/mL NT-Pro-B Natriuret Pep 5660 H (0-1800) pg/mL Serum Total Protein 6.3 (6.3-8.2) g/dL Albumin 2.7 L (3.5-5.0) g/dL Prealbumin 6.51 L (17.6-36.0) mg/dL Urine Color (YELLOW) Urine Appearance (CLEAR) Urine pH (5-6) Ur Specific Marissa (1.005-1.025) Urine Protein (Negative) Urine Ketones (NEGATIVE) Urine Blood (0-5) Donta/ul Urine Nitrite (NEGATIVE) Urine Bilirubin (NEGATIVE) Urine Urobilinogen (0-1) mg/dL Ur Leukocyte Esterase (NEGATIVE) Urine WBC (Auto) (0-5) /HPF Urine RBC (Auto) (0-2) /HPF U Hyaline Cast (Auto) (0-2) /LPF U Epithel Cells (Auto) (FEW) /HPF Urine Bacteria (Auto) (NEGATIVE) /HPF Unidentified Crystals (NEGATIVE) /HPF Urine Mucus (Auto) (NEGATIVE) /HPF Urine Culture Reflexed (NO) Urine Glucose (NEGATIVE) mg/dL Influenza Type A Ag (NEGATIVE) Influenza Type B Ag (NEGATIVE) RSV (PCR) (Negative) 01/19/20 Range/Units 05:50 WBC (4.0-10.5) K/mm3 RBC (4.1-5.6) M/mm3 Hgb (12.5-18.0) gm/dl Hct (42-50) % MCV (78-100) fl MCH (26-32) pg MCHC (32-36) g/dl RDW (11.5-14.0) % Plt Count (150-450) K/mm3 MPV (7.5-11.0) fl Gran % (36.0-66.0) % Eos # (Auto) (0-0.5) Absolute Lymphs (auto) (1.0-4.6) Absolute Monos (auto) (0.0-1.3) Lymphocytes % (24.0-44.0) % Monocytes % (0.0-12.0) % Eosinophils % (0.00-5.0) % Basophils % (0.0-0.4) % Absolute Granulocytes (1.4-6.9) Basophils # (0-0.4) PT (8.83-12.87) SECONDS INR (0.8-3.0) D-Dimer (215-500) ng/mL Puncture Site LEFT BRACHIAL pCO2 29 L (35-45) mmHg pO2 70 L (75-100) mmHg Base Excess 1.0 (-2.0-2.0) O2 Saturation 93.6 L (94-100) g/dF ABG pH 7.51 H (7.35-7.45) ABG HCO3 23.1 (22-28) ABG O2 Sat (Measured) 96.1 (95-100) % Rolando Test NOT APPLICABLE A-a Gradient 207 a/A Ratio 0.25 Hemoglobin 10.2 Carboxyhemoglobin 1.5 (0.0-6.9) % THgb Methemoglobin 1.1 L (1.4-1.5) % Potassium 3.6 (3.5-5.1) Temperature 37.0 C POC O2 Flow Rate 44 % Sodium (137-145) mmol/L Chloride (98-107) mmol/L Carbon Dioxide (22-30) mmol/L Anion Gap (5-15) MEQ/L BUN (9-20) mg/dL Creatinine (0.66-1.25) mg/dL Estimated GFR ML/MIN Glucose (74-106) mg/dL Lactic Acid (0.4-2.0) Calcium (8.4-10.2) mg/dL Ferritin (17.9-464) ng/mL Total Bilirubin (0.2-1.3) mg/dL AST (17-59) U/L ALT (0-50) U/L Alkaline Phosphatase (38-126) U/L Lactate Dehydrogenase (120-246) U/L Troponin I (0.000-0.034) ng/mL NT-Pro-B Natriuret Pep (0-1800) pg/mL Serum Total Protein (6.3-8.2) g/dL Albumin (3.5-5.0) g/dL Prealbumin (17.6-36.0) mg/dL Urine Color (YELLOW) Urine Appearance (CLEAR) Urine pH (5-6) Ur Specific Marissa (1.005-1.025) Urine Protein (Negative) Urine Ketones (NEGATIVE) Urine Blood (0-5) Donta/ul Urine Nitrite (NEGATIVE) Urine Bilirubin (NEGATIVE) Urine Urobilinogen (0-1) mg/dL Ur Leukocyte Esterase (NEGATIVE) Urine WBC (Auto) (0-5) /HPF Urine RBC (Auto) (0-2) /HPF U Hyaline Cast (Auto) (0-2) /LPF U Epithel Cells (Auto) (FEW) /HPF Urine Bacteria (Auto) (NEGATIVE) /HPF Unidentified Crystals (NEGATIVE) /HPF Urine Mucus (Auto) (NEGATIVE) /HPF Urine Culture Reflexed (NO) Urine Glucose (NEGATIVE) mg/dL Influenza Type A Ag (NEGATIVE) Influenza Type B Ag (NEGATIVE) RSV (PCR) (Negative) - Radiology Impressions Radiology Exams & Impressions: Radiology Procedures Category Date Time Status CHEST 1 VIEW (PORTABLE) Stat Exams 01/18/20 17:19 Completed CHEST WITH CONTRAST [CT] Stat Exams 01/18/20 18:46 Completed - Other Procedures and Tests Respiratory Therapy 01/19/20 00:51 Oxygen Nasal Cannula 6 lpm Respiratory Therapy Assessment DAILY Assessment/Plan (1) Congestive heart failure Current Visit: Yes Status: Acute Assessment & Plan: Pt. will receive IV lasix 40mg at 11am Code(s): I50.9 - HEART FAILURE, UNSPECIFIED (2) Hypoxia Current Visit: Yes Status: Acute Assessment & Plan: continue supportive oxygen, pt. is [facility] Code(s): R09.02 - HYPOXEMIA (3) Pneumonia Current Visit: Yes Status: Acute Assessment & Plan: IV antibiotic coverage Code(s): J18.9 - PNEUMONIA, UNSPECIFIED ORGANISM
[2020-01-19] MEDS ORDERED: hydroDIURIL 25 MG PO SCH (11:15)
[2020-01-19] MEDS: XARELTO 10 MG TABLET PO SCH (11:21)
[2020-01-19] MEDS: SYNTHROID 50 MCG PO SCH (11:23)
[2020-01-19] MEDS: Lopressor 25MG Tab PO SCH (11:24)
[2020-01-19] MEDS: ECOTRIN 81 MG PO SCH (11:24)
[2020-01-19] MEDS: Protonix 40MG Tablet PO SCH (11:25)
[2020-01-19] MEDS ORDERED: SYNTHROID 50 MCG PO SCH (11:30)
[2020-01-19] MEDS ORDERED: Lotensin 10 MG PO SCH (12:00)
[2020-01-19] MEDS: LEVOPHED 4 MG/4 ML 4,000 MCG in Dextrose 5%/Water IV Soln. 500 ML 500 ML IV PRN (18:58)
[2020-01-19] MEDS ORDERED: Sodium Chloride 0.9% 1000 ML 1,000 ML ONE (20:01)
[2020-01-19] MEDS: ROCEPHIN 1 Gm-D5w 50 ml Bag** 1 G/50 ML IVPB IV SCH (23:22)
[2020-01-19] MEDS: Zithromax 500 MG/ 250 ML NaCl Premix 500 MG/250 ML IVPB IV SCH (23:27)
[2020-01-19] MEDS: ZOCOR 20MG PO SCH (23:27)
[2020-01-20] MEDS: Lopressor 25MG Tab PO SCH ×3 (02:53→21:21)
[2020-01-20] MEDS: LEVOPHED 4 MG/4 ML 4,000 MCG in Dextrose 5%/Water IV Soln. 500 ML 500 ML IV PRN ×2 (06:14→15:38)
[2020-01-20] MEDS ORDERED: Sodium Chloride 0.9% 1000 ML 1,000 ML IV SCH (08:45)
--- NOTE | 2020-01-20 09:01 | PCM.NOTE ---
Date and Time: 01/20/20854 Subjective Assessment: Pt. notes feeling better and breathing easier today, no new complaints. - Review of Systems Constitutional: No Symptoms Ears, Nose, & Throat: No Symptoms Respiratory: No Symptoms (mild chronic sob ), Short Of Breath Cardiac: No Symptoms Abdominal/Gastrointestinal: No Abdominal Pain, No Nausea, No Vomiting, No Diarrhea Genitourinary Symptoms: No Dysuria Skin: No Rash Objective Exam General Appearance: no apparent distress Skin Exam: normal color, warm, dry Eye Exam: EOMI Neck Exam: normal inspection, non-tender, supple, full range of motion Respiratory Exam: diminished breath sounds Cardiovascular Exam: irregular Gastrointestinal/Abdomen Exam: soft, No tenderness, No distention Extremity Exam: pedal edema OBJECTIVE DATA Vital Signs: Vital Signs - 24 hr Temp Pulse Resp BP Pulse Ox 01/20/20 07:53 95 H 11 L 108/66 92 L 01/20/20 07:22 102 H 20 94 L 01/20/20 07:00 98.1 F 113 H 16 116/60 94 L 01/20/20 06:00 12 01/20/20 05:50 99.5 F 109 H 23 118/75 94 L 01/20/20 05:05 95 01/20/20 05:00 99.2 F 91 H 20 129/66 96 01/20/20 04:00 73 19 01/20/20 03:52 97 H 119/71 96 01/20/20 03:00 104 H 19 103/69 92 L 01/20/20 02:00 57 L 25 H 103/74 95 01/20/20 01:00 119 H 23 103/74 99 01/20/20 00:01 101 H 01/20/20 00:00 98.7 F 68 12 110/69 90 L 01/19/20 23:35 96 01/19/20 23:00 109 H 18 112/73 95 01/19/20 22:00 123 H 21 122/65 100 01/19/20 21:35 93 L 01/19/20 21:00 97 H 20 107/73 87 L 01/19/20 20:07 109 H 94/65 01/19/20 20:00 97.5 F 91 H 19 100/63 98 01/19/20 19:55 98 H 85/61 01/19/20 19:50 87 81/59 01/19/20 19:45 80 92/63 01/19/20 19:40 106 H 89/65 01/19/20 19:30 81 87/58 01/19/20 19:25 101 H 94/65 01/19/20 19:21 85 99/65 01/19/20 19:14 112 H 92/66 01/19/20 19:10 115 H 92/65 01/19/20 19:06 85 104/56 01/19/20 19:00 119 H 103/72 01/19/20 18:57 84 30 H 96 01/19/20 18:55 93 H 97/66 01/19/20 18:50 105 H 80/60 01/19/20 18:45 94 H 20 79/65 98 01/19/20 18:00 20 01/19/20 17:38 103 H 20 96 01/19/20 17:00 104 H 18 99/67 97 01/19/20 16:00 98.0 F 113 H 21 90/50 97 01/19/20 15:00 97 H 21 98 01/19/20 14:52 94 H 20 98 01/19/20 14:00 20 01/19/20 13:51 85 20 98 01/19/20 13:00 22 01/19/20 11:42 22 01/19/20 11:35 99.3 F 111 H 22 112/63 98 01/19/20 11:14 28 H 97 01/19/20 11:00 30 H 01/19/20 10:00 27 H 01/19/20 09:33 105 H 27 H 97 01/19/20 09:00 30 H Oxygen-Last 24 hours Oxygen Flowrate (L/min)-RT 35 Oxygen Flowrate (L/min)-RT 35 Oxygen Flowrate (L/min)-RT 35 Oxygen Flowrate (L/min)-RT 35 Oxygen Flowrate (L/min)-RT 35 Oxygen Flowrate (L/min)-RT 35 Oxygen Flowrate (L/min)-RT 35 Oxygen Flowrate (L/min)-RT 35 Oxygen Flowrate (L/min)-RT 35 Oxygen Flowrate (L/min)-RT 35 Oxygen Flowrate (L/min)-RT 35 Oxygen Flowrate (L/min)-RT 35 Oxygen Flowrate (L/min)-RT 35 Oxygen Flowrate (L/min)-RT 35 Oxygen Flowrate (L/min)-RT 35 Oxygen Flowrate (L/min)-RT 35 Oxygen Flowrate (L/min)-RT 35 Oxygen Flowrate (L/min)-RT 35 Oxygen Flowrate (L/min)-RT 35 Oxygen Flowrate (L/min)-RT 15 Pain Assessment - Last Documented Pain Intensity 3 Pain Scale Used 0-10 Pain Scale Intake and Output: Intake & Output 01/17/20 01/18/20 01/19/20 01/20/20 11:59 11:59 11:59 11:59 Intake Total 1180 2751 Output Total 600 1600 Balance 580 1151 Weight 94.6 kg 94.4 kg Radiology Exams: Radiology Procedures Category Date Time Status CHEST 1 VIEW (PORTABLE) DAILY Exams 01/20/20 08:52 Taken CHEST 1 VIEW (PORTABLE) Stat Exams 01/18/20 17:19 Completed CHEST WITH CONTRAST [CT] Stat Exams 01/18/20 18:46 Completed Assessment/Plan (1) Congestive heart failure Current Visit: Yes Status: Acute Assessment & Plan: will decrease IVF to KVO, give another lasix 20mg at 11am, weight is down 10 pounds in the past 24 hours. Code(s): I50.9 - HEART FAILURE, UNSPECIFIED (2) Hypoxia Current Visit: Yes Status: Acute Assessment & Plan: Holding stable with oxygen therapy, clinically improved breathing noted. Code(s): R09.02 - HYPOXEMIA (3) Pneumonia Current Visit: Yes Status: Acute Assessment & Plan: clinically improved, will add solumedrol for COPD Code(s): J18.9 - PNEUMONIA, UNSPECIFIED ORGANISM (4) Hypotension Current Visit: Yes Status: Acute Assessment & Plan: started levophed, will stop RAVEN/diuretic this am, weaning off levophed has begun this am Code(s): I95.9 - HYPOTENSION, UNSPECIFIED
--- NOTE | 2020-01-20 09:02 | XRAY ---
Indication: Pneumonia. Comparison: January 18, 2020. Portable chest demonstrates minimal clearing of previous diffuse bilateral airspace opacities. Heart remains enlarged with stable chunky mediastinal calcified nodes and large hiatal hernia. No new cardiopulmonary abnormalities.
[2020-01-20 09:05] LABS: Absolute Neutrophil Ct (ANC) 11.85 (1.4-6.9); BASOPHIL % 0.1 % (0.0-0.4); Basophil (Absolute #) 0.01 (0-0.4); Eosinophil % 2.1 % (0.00-5.0); Hematocrit 32.6 % (42-50); Hemoglobin 10.1 gm/dl (12.5-18.0); Lymphocyte (Absolute #) 1.07 (1.0-4.6); Lymphocytes % 7.5 % (24.0-44.0); Mean Cell Volume 92.9 fl (78-100); Mean Corpuscular Hemoglobin 28.8 pg (26-32); Mean Platelet Volume 9.6 fl (7.5-11.0); Monocyte (Absolute #) 1.06 (0.0-1.3); Monocytes % 7.4 % (0.0-12.0); Neutrophil % 82.9 % (36.0-66.0); Platelet Count 368 K/mm3 (150-450); Red Blood Count 3.51 M/mm3 (4.1-5.6); Red Cell Distribution Width 14.9 % (11.5-14.0); White Blood Count 14.3 K/mm3 (4.0-10.5)
[2020-01-20 09:16] LABS: BLOOD UREA NITROGEN 15 mg/dL (9-20); CHLORIDE 103 mmol/L (98-107); Calcium 7.9 mg/dL (8.4-10.2); Carbon Dioxide 25 mmol/L (22-30); Creatinine 1 0.76 mg/dL (0.66-1.25); Glucose 125 mg/dL (74-106); Potassium 3.3 mmol/L (3.5-5.1); SODIUM 135 mmol/L (137-145)
[2020-01-20] MEDS: Protonix 40MG Tablet PO SCH (09:40)
[2020-01-20] MEDS: XARELTO 10 MG TABLET PO SCH (09:40)
[2020-01-20] MEDS: solu-MEDROL 125 MG IV SCH ×2 (09:42→21:21)
[2020-01-20] MEDS: ECOTRIN 81 MG PO SCH (09:42)
[2020-01-20] MEDS ORDERED: BABY ASPIRIN 81 MG CHEW PO SCH (10:00)
[2020-01-20] MEDS ORDERED: HYDROCHLOROTHIAZIDE PO SCH (10:00)
[2020-01-20] MEDS ORDERED: [UNRECOGNIZED DRUG - OTHER] PO SCH (10:00)
[2020-01-20] MEDS ORDERED: BENAZEPRIL PO SCH (10:00)
[2020-01-20] MEDS ORDERED: PHARMACY DOSING REQUIRED: VANCOMYCIN IV ONE (10:38)
[2020-01-20] MEDS ORDERED: Klor Con 10 MEQ PO ONE ×2 (10:42→11:30)
[2020-01-20] MEDS: Sodium Chloride 0.9% W/ 20 mEq KCl/LITER 1,000 ML IV SCH (11:29)
[2020-01-20] MEDS: Vancomycin 1GM/ Ns 250ML*** 1 GM/250 ML IVPB IV SCH ×2 (11:41→21:22)
[2020-01-20] MEDS: Lasix 40 MG/4 ML IV SCH (12:17)
[2020-01-20] MEDS: ROCEPHIN 1 Gm-D5w 50 ml Bag** 1 G/50 ML IVPB IV SCH (21:22)
[2020-01-20] MEDS: Zithromax 500 MG/ 250 ML NaCl Premix 500 MG/250 ML IVPB IV SCH (21:22)
[2020-01-20] MEDS: ZOCOR 20MG PO SCH (21:23)
[2020-01-21 05:15] LABS: Absolute Neutrophil Ct (ANC) 13.31 (1.4-6.9); BASOPHIL % 0.2 % (0.0-0.4); Basophil (Absolute #) 0.03 (0-0.4); Eosinophil % 0.1 % (0.00-5.0); Eosinophil (Absolute #) 0.01 (0-0.5); Hematocrit 35.3 % (42-50); Hemoglobin 10.8 gm/dl (12.5-18.0); Lymphocyte (Absolute #) 0.42 (1.0-4.6); Mean Cell Volume 93.9 fl (78-100); Mean Corpuscular Hemoglobin 28.7 pg (26-32); Mean Corpuscular Hgb Concent. 30.6 g/dl (32-36); Mean Platelet Volume 10.2 fl (7.5-11.0); Monocytes % 2.8 % (0.0-12.0); Neutrophil % 93.9 % (36.0-66.0); Platelet Count 329 K/mm3 (150-450); Red Blood Count 3.76 M/mm3 (4.1-5.6); Red Cell Distribution Width 14.8 % (11.5-14.0); White Blood Count 14.2 K/mm3 (4.0-10.5)
[2020-01-21 05:43] LABS: ANION GAP 9.4 MEQ/L (5-15); BLOOD UREA NITROGEN 17 mg/dL (9-20); CHLORIDE 108 mmol/L (98-107); Calcium 8.1 mg/dL (8.4-10.2); Carbon Dioxide 26 mmol/L (22-30); Creatinine 1 0.64 mg/dL (0.66-1.25); Glucose 151 mg/dL (74-106); Potassium 3.6 mmol/L (3.5-5.1); SODIUM 140 mmol/L (137-145)
[2020-01-21 06:59] LABS: Slide Review 1 YES
[2020-01-21] MEDS: Vancomycin 1GM/ Ns 250ML*** 1 GM/250 ML IVPB IV SCH ×2 (10:09→21:08)
[2020-01-21] MEDS: Lopressor 25MG Tab PO SCH ×2 (10:10→21:07)
[2020-01-21] MEDS: Protonix 40MG Tablet PO SCH (10:10)
[2020-01-21] MEDS: ECOTRIN 81 MG PO SCH (10:10)
[2020-01-21] MEDS: XARELTO 10 MG TABLET PO SCH (10:10)
--- NOTE | 2020-01-21 10:12 | PCM.NOTE ---
Date and Time: 01/21/20 1005 Subjective Assessment: Pt. breathing easily today, very talkative and alert. Pt. notes feeling better than yesterday and feels he is gradually improving. - Review of Systems Constitutional: No Symptoms Ears, Nose, & Throat: No Symptoms Respiratory: Short Of Breath Cardiac: No Symptoms Abdominal/Gastrointestinal: No Symptoms Genitourinary Symptoms: No Symptoms Skin: No Symptoms Neurological: No Symptoms Objective Exam General Appearance: no apparent distress Skin Exam: normal color, warm, dry Eye Exam: EOMI Ears, Nose, Throat Exam: normal ENT inspection Neck Exam: normal inspection, non-tender Respiratory Exam: diminished breath sounds Cardiovascular Exam: irregular Gastrointestinal/Abdomen Exam: soft, normal bowel sounds, tenderness Extremity Exam: normal inspection, No pedal edema (Pt. has been weaned off of levophed and we will now begin to wean oxygen as tolerated, continue iv abx) OBJECTIVE DATA Vital Signs: Vital Signs - 24 hr Temp Pulse Resp BP Pulse Ox 01/21/20 09:00 104 H 22 111/55 93 L 01/21/20 08:00 94 H 16 128/73 92 L 01/21/20 07:51 98 H 22 143/68 90 L 01/21/20 07:35 106 H 16 92 L 01/21/20 07:00 85 16 126/87 95 01/21/20 06:00 90 26 H 118/89 92 L 01/21/20 05:15 91 L 01/21/20 05:00 98 F 81 26 H 113/83 92 L 01/21/20 04:00 90 26 H 118/61 93 L 01/21/20 03:30 113 H 18 132/81 92 L 01/21/20 03:00 89 18 126/72 93 L 01/21/20 02:00 104 H 18 121/62 92 L 01/21/20 01:39 98.9 F 94 H 18 133/69 100 01/21/20 01:00 98.9 F 94 H 18 129/76 100 01/21/20 00:01 94 H 01/21/20 00:00 18 01/20/20 23:57 89 24 109/81 94 L 01/20/20 23:55 95 01/20/20 23:00 91 H 18 95 01/20/20 22:00 95 H 25 H 96 01/20/20 21:37 21 01/20/20 21:00 21 01/20/20 20:59 91 H 21 94 L 01/20/20 20:13 95 H 23 96 01/20/20 20:00 104 H 16 01/20/20 19:51 97.6 F 104 H 16 102/62 93 L 01/20/20 19:39 104 H 16 93 L 01/20/20 19:01 100 H 25 H 102/62 99 01/20/20 19:00 25 H 01/20/20 18:00 93 H 22 110/66 94 L 01/20/20 17:00 95 H 31 H 112/78 97 01/20/20 16:16 98.3 F 01/20/20 16:00 101 H 26 H 117/89 01/20/20 15:00 94 H 25 H 105/66 97 01/20/20 14:00 76 25 H 106/58 97 01/20/20 13:41 98.0 F 01/20/20 13:00 28 H 111/62 97 01/20/20 12:00 92 H 16 102/74 97 01/20/20 11:00 87 16 117/71 97 Oxygen-Last 24 hours Oxygen Flowrate (L/min)-RT 40 Oxygen Flowrate (L/min)-RT 40 Oxygen Flowrate (L/min)-RT 40 Oxygen Flowrate (L/min)-RT 40 Oxygen Flowrate (L/min)-RT 40 Oxygen Flowrate (L/min)-RT 40 Oxygen Flowrate (L/min)-RT 40 Oxygen Flowrate (L/min)-RT 40 Oxygen Flowrate (L/min)-RT 40 Oxygen Flowrate (L/min)-RT 40 Oxygen Flowrate (L/min)-RT 40 Oxygen Flowrate (L/min)-RT 40 Oxygen Flowrate (L/min)-RT 40 Oxygen Flowrate (L/min)-RT 40 Oxygen Flowrate (L/min)-RT 40 Pain Assessment - Last Documented Pain Intensity 3 Pain Scale Used 0-10 Pain Scale Intake and Output: Intake & Output 01/18/20 01/19/20 01/20/20 01/21/20 11:59 11:59 11:59 11:59 Intake Total 1180 2751 1301 Output Total 600 1600 4700 Balance 580 9385 -7962 Weight 94.6 kg 94.4 kg 93.7 kg Lab Results: Lab Results-Last 24 Hours 01/18/20 01/21/20 01/21/20 Range/Units 18:43 04:55 04:55 WBC 14.2 H (4.0-10.5) K/mm3 RBC 3.76 L (4.1-5.6) M/mm3 Hgb 10.8 L (12.5-18.0) gm/dl Hct 35.3 L (42-50) % MCV 93.9 (78-100) fl MCH 28.7 (26-32) pg MCHC 30.6 L (32-36) g/dl RDW 14.8 H (11.5-14.0) % Plt Count 329 (150-450) K/mm3 MPV 10.2 (7.5-11.0) fl Gran % 93.9 H (36.0-66.0) % Eos # (Auto) 0.01 (0-0.5) Absolute Lymphs (auto) 0.42 L (1.0-4.6) Absolute Monos (auto) 0.40 (0.0-1.3) Lymphocytes % 3.0 L (24.0-44.0) % Monocytes % 2.8 (0.0-12.0) % Eosinophils % 0.1 (0.00-5.0) % Basophils % 0.2 (0.0-0.4) % Absolute Granulocytes 13.31 H (1.4-6.9) Basophils # 0.03 (0-0.4) Sodium 140 (137-145) mmol/L Potassium 3.6 (3.5-5.1) mmol/L Chloride 108 H (98-107) mmol/L Carbon Dioxide 26 (22-30) mmol/L Anion Gap 9.4 (5-15) MEQ/L BUN 17 (9-20) mg/dL Creatinine 0.64 L (0.66-1.25) mg/dL Estimated GFR > 60.0 ML/MIN Glucose 151 H (74-106) mg/dL Calcium 8.1 L (8.4-10.2) mg/dL COVID-19 (KYLE) Not Detected (Not Detected) SARS-CoV-2 Source Not Given Slides for Path Review YES Radiology Exams: Radiology Procedures Category Date Time Status CHEST 1 VIEW (PORTABLE) DAILY Exams 01/20/20 08:52 Completed Multi-Disciplinary Progress Notes: Multi-Disciplinary Progress Notes 01/20/20 11:19 Pharmacy Note by Denis Huggins Pharmacokinetic dosing service Date: 01/20/2020 Time: 1115 Objective: Patient: MILDRED PINK Floor: 109 Age: 84 yo Serum creatinine: 0.76 mg/dL Height: 69 Inches Weight (kg): 94 Diagnosis: ELEVATED WBC PNEUMONIA Relevant medical/social history: CHF Cultures and sensitivities: BLOOD NO GROWTH. 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 Drug selected: Vancomycin Loading dose (mg): 0 Vd (liters): 65.8 (factor used: 0.7 L/kg) Jake (hr-1): 0.065 Half life ( hrs): 10.66 Recommended dose: 1000 mg Interval: 12 hrs Infusion time (hrs): 2.0 Predicted peak (mcg/mL): 26.3 Predicted trough (mcg/mL): 13.73 Total body weight is being used for vancomycin dosing. Renal function is stable [xxx ] /unstable [ ] Recommendations: Give Vancomycin 1000 mg q 12 hrs with an expected Cpeak of 26.3 mcg/ml and an expected Ctrough of 13.73 mcg/ml Renal dosing of other antibiotics (review renal dosing of other medications and list guidelines here): Thank you for the consult, will continue to follow. Signature: DENIS HUGGINS Initialized on 01/20/20 11:19 - END OF NOTE Assessment/Plan (1) Congestive heart failure Current Visit: Yes Status: Acute Assessment & Plan: Good, improved ease of breathing, weight down another 2 pounds. Pt. will need PT Code(s): I50.9 - HEART FAILURE, UNSPECIFIED (2) Hypoxia Current Visit: Yes Status: Acute Assessment & Plan: Continues to need oxygen, but clinically improving and will begin weaning as tolerated. Code(s): R09.02 - HYPOXEMIA (3) Pneumonia Current Visit: Yes Status: Acute Assessment & Plan: Clinically and lab looking better, will continue current iv abx Code(s): J18.9 - PNEUMONIA, UNSPECIFIED ORGANISM (4) Hypotension Current Visit: Yes Status: Acute Code(s): I95.9 - HYPOTENSION, UNSPECIFIED
[2020-01-21] MEDS ORDERED: Sodium Chloride 0.9% 250 ML 250 ML IV SCH (10:30)
[2020-01-21] MEDS: solu-MEDROL 125 MG IV SCH ×2 (10:30→21:04)
[2020-01-21] MEDS: Sodium Chloride 0.9% W/ 20 mEq KCl/LITER 1,000 ML IV SCH ×2 (11:17→17:38)
[2020-01-21] MEDS ORDERED: Lasix 20 MG/2 ML IV ONE (11:30)
[2020-01-21] MEDS: Lasix 20 MG/2 ML IV SCH (16:30)
[2020-01-21] MEDS: LEVOPHED 4 MG/4 ML 4,000 MCG in Dextrose 5%/Water IV Soln. 500 ML 500 ML IV PRN (17:35)
[2020-01-21] MEDS: ROCEPHIN 1 Gm-D5w 50 ml Bag** 1 G/50 ML IVPB IV SCH (21:08)
[2020-01-21] MEDS: ZOCOR 20MG PO SCH (21:09)
[2020-01-21] MEDS: Zithromax 500 MG/ 250 ML NaCl Premix 500 MG/250 ML IVPB IV SCH (21:09)
[2020-01-22] MEDS: Lasix 20 MG/2 ML IV SCH ×2 (03:55→10:30)
[2020-01-22 04:57] LABS: Hemoglobin 10.2 gm/dl (12.5-18.0); Mean Cell Volume 93.5 fl (78-100); Mean Corpuscular Hemoglobin 28.9 pg (26-32); Mean Corpuscular Hgb Concent. 30.9 g/dl (32-36); Mean Platelet Volume 9.8 fl (7.5-11.0); Platelet Count 455 K/mm3 (150-450); Red Blood Count 3.53 M/mm3 (4.1-5.6); Red Cell Distribution Width 14.7 % (11.5-14.0)
[2020-01-22 05:09] LABS: White Blood Count 25.9 K/mm3 (4.0-10.5)
[2020-01-22 05:18] LABS: ANION GAP 9.5 MEQ/L (5-15); BLOOD UREA NITROGEN 21 mg/dL (9-20); CHLORIDE 107 mmol/L (98-107); Calcium 8.2 mg/dL (8.4-10.2); Carbon Dioxide 26 mmol/L (22-30); Creatinine 1 0.69 mg/dL (0.66-1.25); Glucose 147 mg/dL (74-106); Potassium 3.7 mmol/L (3.5-5.1); SODIUM 139 mmol/L (137-145)
[2020-01-22] MEDS: Sodium Chloride 0.9% W/ 20 mEq KCl/LITER 1,000 ML IV SCH ×4 (07:11→11:19)
[2020-01-22 07:22] LABS: Lymphocytes 1 % (24-44); Monocyte 4 % (0.0-12.0); Neutrophils 95 % (36.-66.); Total Cells Counted 100
[2020-01-22 07:23] LABS: ANISOCYTOSIS 1+; Hypochromia 1+; Poikilocytosis 1+; Polychromasia 1+
[2020-01-22 07:24] LABS: Platelet Estimate NORMAL (NORMAL)
--- NOTE | 2020-01-22 08:54 | XRAY ---
Indication: Pneumonia. Suspect Covid 19. Comparison: January 20, 2020. Portable chest unchanged again demonstrating diffuse bilateral airspace opacities right greater than left, cardiomegaly, chunky mediastinal calcified nodes, and large hiatal hernia. No new cardiopulmonary abnormalities.
[2020-01-22] MEDS: solu-MEDROL 125 MG IV SCH (08:56)
[2020-01-22] MEDS: ECOTRIN 81 MG PO SCH (08:58)
[2020-01-22] MEDS: XARELTO 10 MG TABLET PO SCH (08:58)
[2020-01-22] MEDS: Protonix 40MG Tablet PO SCH (08:58)
[2020-01-22] MEDS: Lopressor 25MG Tab PO SCH ×2 (08:58→22:35)
[2020-01-22] MEDS ORDERED: TROUGH DRUG LEVELS IJ ONE (09:30)
[2020-01-22] MEDS ORDERED: Lasix 40 MG/4 ML IV ONE ×2 (10:26→10:29)
--- NOTE | 2020-01-22 10:33 | PCM.NOTE ---
Date and Time: 01/22/20 1029 Subjective Assessment: Pt. not breathing as easily today, weight is up 4 pounds since yesterday. - Review of Systems Constitutional: No Fever, No Chills Eyes: No Symptoms Respiratory: Short Of Breath Cardiac: No Chest Pain, No Edema, No Syncope Abdominal/Gastrointestinal: No Abdominal Pain, No Nausea, No Vomiting, No Diarrhea Genitourinary Symptoms: No Dysuria Skin: No Rash Objective Exam General Appearance: no apparent distress, mild distress Neurologic Exam: alert, cooperative Skin Exam: normal color, warm, dry Eye Exam: EOMI Ears, Nose, Throat Exam: normal ENT inspection Neck Exam: normal inspection Respiratory Exam: diminished breath sounds, crackles/rales Cardiovascular Exam: irregular Gastrointestinal/Abdomen Exam: soft Extremity Exam: normal inspection OBJECTIVE DATA Vital Signs: Vital Signs - 24 hr Temp Pulse Resp BP Pulse Ox 01/22/20 10:00 110 H 18 117/75 01/22/20 09:00 104 H 27 H 113/55 91 L 01/22/20 07:59 98.3 F 107 H 12 119/63 91 L 01/22/20 07:21 116 H 22 01/22/20 07:16 98.3 F 01/22/20 07:00 108 H 20 90 L 01/22/20 06:34 103 H 22 107/63 01/22/20 05:43 22 01/22/20 05:39 102 H 12 90 L 01/22/20 04:35 84 19 135/75 90 L 01/22/20 03:53 98.4 F 01/22/20 03:39 94 H 17 115/62 90 L 01/22/20 03:00 89 26 H 90 L 01/22/20 02:00 87 24 115/62 90 L 01/22/20 00:35 92 H 24 115/62 01/21/20 23:46 96 H 01/21/20 23:42 30 H 01/21/20 23:01 101 H 30 H 92 L 01/21/20 22:33 98 H 24 127/73 01/21/20 22:00 22 01/21/20 21:51 98 H 26 H 94 L 01/21/20 20:54 89 23 113/76 90 L 01/21/20 19:55 106 H 21 92 L 01/21/20 19:51 107 H 18 113/76 90 L 01/21/20 19:47 98.3 F 81 15 113/76 93 L 01/21/20 18:53 106 H 20 109/70 90 L 01/21/20 18:00 105 H 27 H 116/68 90 L 01/21/20 17:00 92 H 30 H 101/76 91 L 01/21/20 16:00 98.3 F 114 H 12 113/69 88 L 01/21/20 15:00 24 01/21/20 14:49 104 H 24 108/64 94 L 01/21/20 13:52 98 F 88 24 98/67 93 L 01/21/20 13:00 90 22 94/61 90 L 01/21/20 12:00 93 H 22 01/21/20 11:58 96 H 22 111/72 91 L 01/21/20 11:46 90 12 122/58 95 01/21/20 11:00 12 131/65 Oxygen-Last 24 hours Oxygen Flowrate (L/min)-RT 40 Oxygen Flowrate (L/min)-RT 40 Oxygen Flowrate (L/min)-RT 40 Oxygen Flowrate (L/min)-RT 40 Oxygen Flowrate (L/min)-RT 40 Oxygen Flowrate (L/min)-RT 40 Oxygen Flowrate (L/min)-RT 40 Oxygen Flowrate (L/min)-RT 40 Oxygen Flowrate (L/min)-RT 40 Oxygen Flowrate (L/min)-RT 40 Oxygen Flowrate (L/min)-RT 40 Oxygen Flowrate (L/min)-RT 40 Oxygen Flowrate (L/min)-RT 40 Oxygen Flowrate (L/min)-RT 40 Oxygen Flowrate (L/min)-RT 40 Oxygen Flowrate (L/min)-RT 40 Oxygen Flowrate (L/min)-RT 40 Oxygen Flowrate (L/min)-RT 40 Pain Assessment - Last Documented Pain Intensity 3 Pain Scale Used 0-10 Pain Scale Intake and Output: Intake & Output 01/19/20 01/20/20 01/21/20 01/22/20 11:59 11:59 11:59 11:59 Intake Total 1180 2751 1301 2540 Output Total 600 1600 4700 1200 Balance 580 1151 -3399 1340 Weight 94.6 kg 94.4 kg 93.7 kg 95.6 kg Lab Results: Lab Results-Last 24 Hours 01/22/20 01/22/20 Range/Units 04:35 04:35 WBC 25.9 H* (4.0-10.5) K/mm3 RBC 3.53 L (4.1-5.6) M/mm3 Hgb 10.2 L (12.5-18.0) gm/dl Hct 33.0 L (42-50) % MCV 93.5 (78-100) fl MCH 28.9 (26-32) pg MCHC 30.9 L (32-36) g/dl RDW 14.7 H (11.5-14.0) % Plt Count 455 H D (150-450) K/mm3 MPV 9.8 (7.5-11.0) fl Segmented Neutrophils 95 H (36.-66.) % Lymphocytes (Manual) 1 L (24-44) % Monocytes (Manual) 4 (0.0-12.0) % Hypochromia 1+ Platelet Estimate NORMAL (NORMAL) RBC Morphology ABNORMAL Polychromasia 1+ Poikilocytosis 1+ Anisocytosis 1+ Smear Path Review Pending Sodium 139 (137-145) mmol/L Potassium 3.7 (3.5-5.1) mmol/L Chloride 107 (98-107) mmol/L Carbon Dioxide 26 (22-30) mmol/L Anion Gap 9.5 (5-15) MEQ/L BUN 21 H (9-20) mg/dL Creatinine 0.69 (0.66-1.25) mg/dL Estimated GFR > 60.0 ML/MIN Glucose 147 H (74-106) mg/dL Calcium 8.2 L (8.4-10.2) mg/dL Radiology Exams: Radiology Procedures Category Date Time Status CHEST 1 VIEW (PORTABLE) Routine Exams 01/22/20 05:00 Completed Multi-Disciplinary Progress Notes: Multi-Disciplinary Progress Notes 01/21/20 13:42 Case Management Note by Radha Sepulveda PATIENT STILL ACUTELY ILL AT THIS TIME. WILL MONITOR AND DISCUSS DC PLANS CLOSER TO TIME OF DC. Initialized on 01/21/20 13:42 - END OF NOTE Assessment/Plan (1) Congestive heart failure Current Visit: Yes Status: Acute Assessment & Plan: weight up will decrease ivf and increase lasix Code(s): I50.9 - HEART FAILURE, UNSPECIFIED (2) Hypoxia Current Visit: Yes Status: Acute Assessment & Plan: Continues to need oxygen, no changes Code(s): R09.02 - HYPOXEMIA (3) Pneumonia Current Visit: Yes Status: Acute Assessment & Plan: cxr stable no worsening per cxr report Code(s): J18.9 - PNEUMONIA, UNSPECIFIED ORGANISM (4) Hypotension Current Visit: Yes Status: Acute Assessment & Plan: again off pressors, continue low dose beta-blockers for rate controled a-fib Code(s): I95.9 - HYPOTENSION, UNSPECIFIED
[2020-01-22] MEDS: Vancomycin 1GM/ Ns 250ML*** 1 GM/250 ML IVPB IV SCH ×2 (10:46→22:37)
[2020-01-22] MEDS: Ativan 2 MG/1 ML VIAL IV PRN ×2 (14:42→23:19)
[2020-01-22] MEDS: ROCEPHIN 1 Gm-D5w 50 ml Bag** 1 G/50 ML IVPB IV SCH (22:36)
[2020-01-22] MEDS: Zithromax 500 MG/ 250 ML NaCl Premix 500 MG/250 ML IVPB IV SCH (22:39)
[2020-01-22] MEDS: ZOCOR 20MG PO SCH (22:40)
[2020-01-23] MEDS: Ativan 2 MG/1 ML VIAL IV PRN ×2 (01:29→04:13)
[2020-01-23 05:03] LABS: Absolute Neutrophil Ct (ANC) 19.29 (1.4-6.9); Basophil (Absolute #) 0.01 (0-0.4); Eosinophil (Absolute #) 0 (0-0.5); Hematocrit 35.1 % (42-50); Hemoglobin 10.6 gm/dl (12.5-18.0); Lymphocyte (Absolute #) 0.77 (1.0-4.6); Lymphocytes % 3.6 % (24.0-44.0); Mean Cell Volume 94.9 fl (78-100); Mean Corpuscular Hemoglobin 28.6 pg (26-32); Mean Corpuscular Hgb Concent. 30.2 g/dl (32-36); Mean Platelet Volume 10.2 fl (7.5-11.0); Monocytes % 5.6 % (0.0-12.0); Neutrophil % 90.8 % (36.0-66.0); Platelet Count 390 K/mm3 (150-450); White Blood Count 21.3 K/mm3 (4.0-10.5)
[2020-01-23 05:22] LABS: ANION GAP 12.1 MEQ/L (5-15); BLOOD UREA NITROGEN 30 mg/dL (9-20); CHLORIDE 107 mmol/L (98-107); Calcium 8.1 mg/dL (8.4-10.2); Carbon Dioxide 26 mmol/L (22-30); Creatinine 1 0.73 mg/dL (0.66-1.25); Glucose 126 mg/dL (74-106); Potassium 3.7 mmol/L (3.5-5.1); SODIUM 141 mmol/L (137-145)
[2020-01-23] MEDS: Lasix 20 MG/2 ML IV SCH (05:43)
[2020-01-23] MEDS: Sodium Chloride 0.9% W/ 20 mEq KCl/LITER 1,000 ML IV SCH ×6 (05:52→23:27)
[2020-01-23] MEDS ORDERED: Haldol 5 MG IV ONE (06:39)
[2020-01-23] MEDS ORDERED: Lasix 40 MG/4 ML IV ONE (06:57)
[2020-01-23] MEDS: Zosyn 3.375 GM Vial 3.375 GM in Sodium Chloride 100ML MINI-BAG PLUS 100 ML IV SCH ×4 (07:02→23:08)
--- NOTE | 2020-01-23 09:28 | PCM.NOTE ---
Date and Time: 01/23/20921 Subjective Assessment: Pt. has markedly increased sob, now on bipap, sats are low marked decrease in oxygenation capacity over the past 24 hours findings c/w covid despite negative test results, suspect test was a false negative inflammatory response c/w covid. - Review of Systems Constitutional: Other (breathing difficulty) Respiratory: Short Of Breath All Other Systems: Unable due to condition Objective Exam General Appearance: severe distress (difficulty with oxygenation noted.) Skin Exam: warm, dry, No rash, No petechiae Neck Exam: normal inspection Respiratory Exam: diminished breath sounds, crackles/rales, rhonchi Cardiovascular Exam: tachycardia Gastrointestinal/Abdomen Exam: soft, No tenderness Extremity Exam: pedal edema OBJECTIVE DATA Vital Signs: Vital Signs - 24 hr Temp Pulse Resp BP Pulse Ox 01/23/20 08:38 113 H 36 H 81 L 01/23/20 08:00 137 H 01/23/20 07:37 97.8 F 117 H 42 H 140/88 84 L 01/23/20 07:00 120 H 40 H 85 L 01/23/20 06:50 110 H 42 H 84 L 01/23/20 06:30 11 L 01/23/20 05:37 11 L 01/23/20 05:36 119 H 20 88 L 01/23/20 05:00 11 L 01/23/20 04:59 107 H 11 L 90 L 01/23/20 03:53 110 H 26 H 01/23/20 03:40 97.9 F 104 H 26 H 161/92 93 L 01/23/20 03:00 104 H 20 90 L 01/23/20 02:00 108 H 20 90 L 01/23/20 01:00 108 H 20 96 01/23/20 00:01 98 H 01/23/20 00:00 97.9 F 109 H 20 102/80 85 L 01/22/20 23:00 12 01/22/20 22:46 102 H 12 83 L 01/22/20 22:00 98.7 F 124 H 8 L 105/71 90 L 01/22/20 21:00 109 H 24 90 L 01/22/20 20:16 97 H 24 92 L 01/22/20 20:00 98.2 F 99 H 24 115/77 92 L 01/22/20 18:52 18 01/22/20 18:48 101 H 16 94 L 01/22/20 18:00 18 01/22/20 17:57 102 H 14 117/69 94 L 01/22/20 17:00 15 01/22/20 16:48 91 H 15 110/72 93 L 01/22/20 16:00 98 H 19 01/22/20 15:47 97.3 F 98 H 19 108/71 94 L 01/22/20 14:57 102 H 14 123/81 92 L 01/22/20 14:50 93 L 01/22/20 14:00 101 H 21 123/81 91 L 01/22/20 13:00 100 H 18 122/89 01/22/20 12:00 95 H 20 01/22/20 11:46 97.4 F 97 H 20 132/67 91 L 01/22/20 11:40 91 L 01/22/20 10:58 118 H 24 119/72 91 L 01/22/20 10:00 110 H 18 117/75 Oxygen-Last 24 hours Oxygen Flowrate (L/min)-RT 40 Oxygen Flowrate (L/min)-RT 40 Oxygen Flowrate (L/min)-RT 40 Oxygen Flowrate (L/min)-RT 40 Oxygen Flowrate (L/min)-RT 40 Oxygen Flowrate (L/min)-RT 40 Oxygen Flowrate (L/min)-RT 40 Oxygen Flowrate (L/min)-RT 40 Oxygen Flowrate (L/min)-RT 40 Oxygen Flowrate (L/min)-RT 40 Pain Assessment - Last Documented Pain Intensity 3 Pain Scale Used [facility] Intake and Output: Intake & Output 01/20/20 01/21/20 01/22/20 01/23/20 11:59 11:59 11:59 11:59 Intake Total 2751 1301 2540 1319 Output Total 1600 4700 1200 3900 Balance 1151 -3399 1340 -2581 Weight 94.4 kg 93.7 kg 95.6 kg 95.5 kg Lab Results: Lab Results-Last 24 Hours 01/22/20 01/22/20 01/23/20 Range/Units 04:35 09:30 04:40 WBC 21.3 H (4.0-10.5) K/mm3 RBC 3.70 L (4.1-5.6) M/mm3 Hgb 10.6 L (12.5-18.0) gm/dl Hct 35.1 L (42-50) % MCV 94.9 (78-100) fl MCH 28.6 (26-32) pg MCHC 30.2 L (32-36) g/dl RDW 15.0 H (11.5-14.0) % Plt Count 390 (150-450) K/mm3 MPV 10.2 (7.5-11.0) fl Gran % 90.8 H (36.0-66.0) % Eos # (Auto) 0 (0-0.5) Absolute Lymphs (auto) 0.77 L (1.0-4.6) Absolute Monos (auto) 1.20 (0.0-1.3) Lymphocytes % 3.6 L (24.0-44.0) % Monocytes % 5.6 (0.0-12.0) % Eosinophils % 0.0 (0.00-5.0) % Basophils % 0.0 (0.0-0.4) % Absolute Granulocytes 19.29 H (1.4-6.9) Basophils # 0.01 (0-0.4) Smear Path Review Sodium (137-145) mmol/L Potassium (3.5-5.1) mmol/L Chloride (98-107) mmol/L Carbon Dioxide (22-30) mmol/L Anion Gap (5-15) MEQ/L BUN (9-20) mg/dL Creatinine (0.66-1.25) mg/dL Estimated GFR ML/MIN Glucose (74-106) mg/dL Calcium (8.4-10.2) mg/dL Vancomycin Trough 11.93 (10-20) ug/mL 01/23/20 Range/Units 04:40 WBC (4.0-10.5) K/mm3 RBC (4.1-5.6) M/mm3 Hgb (12.5-18.0) gm/dl Hct (42-50) % MCV (78-100) fl MCH (26-32) pg MCHC (32-36) g/dl RDW (11.5-14.0) % Plt Count (150-450) K/mm3 MPV (7.5-11.0) fl Gran % (36.0-66.0) % Eos # (Auto) (0-0.5) Absolute Lymphs (auto) (1.0-4.6) Absolute Monos (auto) (0.0-1.3) Lymphocytes % (24.0-44.0) % Monocytes % (0.0-12.0) % Eosinophils % (0.00-5.0) % Basophils % (0.0-0.4) % Absolute Granulocytes (1.4-6.9) Basophils # (0-0.4) Smear Path Review Sodium 141 (137-145) mmol/L Potassium 3.7 (3.5-5.1) mmol/L Chloride 107 (98-107) mmol/L Carbon Dioxide 26 (22-30) mmol/L Anion Gap 12.1 (5-15) MEQ/L BUN 30 H (9-20) mg/dL Creatinine 0.73 (0.66-1.25) mg/dL Estimated GFR > 60.0 ML/MIN Glucose 126 H (74-106) mg/dL Calcium 8.1 L (8.4-10.2) mg/dL Vancomycin Trough (10-20) ug/mL Radiology Exams: Radiology Procedures Category Date Time Status CHEST 1 VIEW (PORTABLE) Routine Exams 01/22/20 05:00 Completed Multi-Disciplinary Progress Notes: Multi-Disciplinary Progress Notes 01/22/20 11:08 Case Management Note by Radha Sepulveda CONTINUING TO MONITOR PATIENT'S STATUS, WILL CONTINUE TO HOLD OFF ON DC PLANNING AT THIS TIME UNTIL PATIENT MORE STABLE Initialized on 01/22/20 11:08 - END OF NOTE Assessment/Plan (1) Congestive heart failure Current Visit: Yes Status: Acute Assessment & Plan: Increase in lasix dosing and frequency Code(s): I50.9 - HEART FAILURE, UNSPECIFIED (2) Hypoxia Current Visit: Yes Status: Acute Assessment & Plan: still remains a problem, pt. does not want mechanical ventilation, has accepted bipap, findings c/w covid inflammatory response decreasing oxygenation capacity. Code(s): R09.02 - HYPOXEMIA (3) Pneumonia Current Visit: Yes Status: Acute Assessment & Plan: Worsening of films, decreased oxygenation ability secondary to findings c/w covid and rapid changes over the past 24-36 hours. will increase peep in attempt to recruit more oxygenation abillity. Code(s): J18.9 - PNEUMONIA, UNSPECIFIED ORGANISM (4) Hypotension Current Visit: Yes Status: Acute Assessment & Plan: bp elevated today. Code(s): I95.9 - HYPOTENSION, UNSPECIFIED
[2020-01-23] MEDS: Lasix 40 MG/4 ML IV SCH ×2 (09:56→17:23)
[2020-01-23] MEDS: Vancomycin 1GM/ Ns 250ML*** 1 GM/250 ML IVPB IV SCH ×2 (09:56→21:28)
[2020-01-23] MEDS ORDERED: DELTASONE 20 MG PO SCH (10:00)
[2020-01-23] MEDS: MORPHINE SULFATE 2 MG INJ IV PRN ×2 (10:30→16:11)
[2020-01-24] MEDS: Lasix 40 MG/4 ML IV SCH ×3 (00:56→20:32)
[2020-01-24 05:08] LABS: Hemoglobin 11.8 gm/dl (12.5-18.0); Mean Cell Volume 103.6 fl (78-100); Mean Corpuscular Hemoglobin 28.4 pg (26-32); Mean Corpuscular Hgb Concent. 27.4 g/dl (32-36); Mean Platelet Volume 10.1 fl (7.5-11.0); Platelet Count 401 K/mm3 (150-450); Red Blood Count 4.15 M/mm3 (4.1-5.6); Red Cell Distribution Width 15.5 % (11.5-14.0)
[2020-01-24 05:12] LABS: White Blood Count 25.4 K/mm3 (4.0-10.5)
[2020-01-24 05:22] LABS: ANION GAP 17.8 MEQ/L (5-15); Calcium 8.1 mg/dL (8.4-10.2); Creatinine 1 1.79 mg/dL (0.66-1.25)
[2020-01-24 05:23] LABS: Potassium 5.2 mmol/L (3.5-5.1)
[2020-01-24] MEDS: Zosyn 3.375 GM Vial 3.375 GM in Sodium Chloride 100ML MINI-BAG PLUS 100 ML IV SCH (05:30)
[2020-01-24 07:13] LABS: BAND 13 % (0.0-2.0); Lymphocytes 6 % (24-44); Monocyte 3 % (0.0-12.0); Neutrophils 78 % (36.-66.); Nucleated Red Blood Cell 1 %; Total Cells Counted 100
[2020-01-24 07:14] LABS: Platelet Estimate NORMAL (NORMAL)
[2020-01-24 07:15] LABS: ANISOCYTOSIS 2+; Hypochromia 1+; Polychromasia 1+
[2020-01-24 07:16] LABS: Absolute Neutrophil Ct (ANC) 23.14 (1.4-6.9)
[2020-01-24] MEDS ORDERED: TROUGH DRUG LEVELS IJ ONE (09:30)
[2020-01-24] MEDS: XARELTO 10 MG TABLET PO SCH (10:16)
[2020-01-24] MEDS: ECOTRIN 81 MG PO SCH (10:16)
[2020-01-24] MEDS: Protonix 40MG Tablet PO SCH (10:16)
[2020-01-24] MEDS: Lopressor 25MG Tab PO SCH ×2 (10:16→21:18)
[2020-01-24] MEDS ORDERED: Sodium Chloride 0.9% 500 ML 500 ML IV ONE (10:22)
--- NOTE | 2020-01-24 11:04 | PCM.NOTE ---
Date and Time: 01/24/20 1059 Subjective Assessment: Pt. is not responsive at this time, blood pressure markedly low, sats 92 on bipap. - Review of Systems All Other Systems: Unable due to condition Objective Exam General Appearance: no apparent distress Neck Exam: normal inspection Respiratory Exam: diminished breath sounds Cardiovascular Exam: irregular Gastrointestinal/Abdomen Exam: soft, No tenderness Extremity Exam: normal inspection OBJECTIVE DATA Vital Signs: Vital Signs - 24 hr Temp Pulse Resp BP Pulse Ox 01/24/20 10:00 107 H 26 H 01/24/20 09:00 117 H 27 H 01/24/20 08:00 90 27 H 43 L 01/24/20 07:00 111 H 26 H 92 L 01/24/20 06:50 128 H 26 H 92 L 01/24/20 06:00 106 H 8 L 01/24/20 05:00 104 H 4 L 01/24/20 04:00 96.1 F 97 H 11 L 76/51 01/24/20 03:00 23 01/24/20 02:00 100 H 23 86/52 01/24/20 01:59 22 01/24/20 01:00 99 H 20 85/59 01/24/20 00:01 96 H 01/24/20 00:00 95.9 F 96 H 21 76/53 96 01/23/20 23:00 81 23 86/59 01/23/20 21:47 21 01/23/20 21:46 96.7 F 111 H 21 76/57 01/23/20 21:00 90 22 96 01/23/20 20:01 112 H 24 94 L 01/23/20 19:50 102 H 24 95 01/23/20 19:32 90 01/23/20 19:00 97.1 F 101 H 23 91/66 94 L 01/23/20 18:00 96.5 F 112 H 25 H 96/55 92 L 01/23/20 17:08 26 H 105/67 01/23/20 17:00 26 H 01/23/20 16:57 94 H 92 L 01/23/20 16:00 96.5 F 96 H 30 H 98/65 93 L 01/23/20 15:00 120 H 30 H 93 L 01/23/20 14:00 96.5 F 103 H 29 H 133/77 92 L 01/23/20 13:00 120 H 31 H 89 L 01/23/20 12:00 117 H 33 H 01/23/20 11:50 86 127/85 01/23/20 11:10 98.5 F 118 H 33 H 143/95 83 L 01/23/20 11:00 125 H 33 H 83 L Pain Assessment - Last Documented Pain Intensity 3 Pain Scale Used [facility]ACC Intake and Output: Intake & Output 01/21/20 01/22/20 01/23/20 01/24/20 11:59 11:59 11:59 11:59 Intake Total 1301 2540 1319 1417 Output Total 4700 1200 4400 125 Balance -3399 1340 -3081 1292 Weight 93.7 kg 95.6 kg 95.5 kg 93 kg Lab Results: Lab Results-Last 24 Hours 01/24/20 01/24/20 01/24/20 Range/Units 04:55 04:55 09:35 WBC 25.4 H* (4.0-10.5) K/mm3 RBC 4.15 (4.1-5.6) M/mm3 Hgb 11.8 L (12.5-18.0) gm/dl Hct 43.0 (42-50) % MCV 103.6 H D (78-100) fl MCH 28.4 (26-32) pg MCHC 27.4 L (32-36) g/dl RDW 15.5 H (11.5-14.0) % Plt Count 401 (150-450) K/mm3 MPV 10.1 (7.5-11.0) fl Absolute Granulocytes 23.14 H (1.4-6.9) Segmented Neutrophils 78 H (36.-66.) % Band Neutrophils 13 H (0.0-2.0) % Lymphocytes (Manual) 6 L (24-44) % Monocytes (Manual) 3 (0.0-12.0) % Nucleated RBCs 1 % Hypochromia 1+ Platelet Estimate NORMAL (NORMAL) RBC Morphology ABNORMAL Polychromasia 1+ Anisocytosis 2+ Sodium 142 (137-145) mmol/L Potassium 5.2 H D (3.5-5.1) mmol/L Chloride 111 H (98-107) mmol/L Carbon Dioxide 18 L (22-30) mmol/L Anion Gap 17.8 H (5-15) MEQ/L BUN 44 H (9-20) mg/dL Creatinine 1.79 H (0.66-1.25) mg/dL Estimated GFR 38.7 ML/MIN Glucose 105 (74-106) mg/dL Calcium 8.1 L (8.4-10.2) mg/dL Vancomycin Trough 29.03 H (10-20) ug/mL Multi-Disciplinary Progress Notes: Multi-Disciplinary Progress Notes 01/24/20 08:00 Pharmacy Note by Efrain Ramires Creatinine has increased to 1.79. Est. CrCl is 31ml/min. Will reduce Zosyn to 2.25gm dose per renal dosing policy. Will re-dose Vancomycin as well. Initialized on 01/24/20 08:00 - END OF NOTE Assessment/Plan (1) Congestive heart failure Current Visit: Yes Status: Acute Assessment & Plan: weight down to 93kg, overly dehydrated now, will slightly bump ivf, small bolus , as no urine output at this time. Potassium removed from ivf for elevated potassium. Pt. Code(s): I50.9 - HEART FAILURE, UNSPECIFIED (2) Hypoxia Current Visit: Yes Status: Acute Assessment & Plan: As throughout the admission oxygenation has been difficult, condition c/w ARDS Code(s): R09.02 - HYPOXEMIA (3) Pneumonia Current Visit: Yes Status: Acute Assessment & Plan: wbc elevated, good coverage on abx, but will try merrem at this time. Code(s): J18.9 - PNEUMONIA, UNSPECIFIED ORGANISM (4) Hypotension Current Visit: Yes Status: Acute Assessment & Plan: Held Lasix this am for low bp, will try a slightly lower peep to help bp if oxygenation can tolerate. Code(s): I95.9 - HYPOTENSION, UNSPECIFIED
[2020-01-24] MEDS: Merrem 1 GM 1 G in Sodium Chloride 100ML MINI-BAG PLUS 100 ML IV SCH ×2 (11:19→21:06)
[2020-01-24] MEDS: Sodium Chloride 0.9% 1000 ML 1,000 ML IV SCH ×2 (11:36→21:19)
[2020-01-24] MEDS ORDERED: Zosyn 2.25 GM 2.25 GM in Sodium Chloride 100ML MINI-BAG PLUS 100 ML IV SCH (12:00)
[2020-01-24] MEDS ORDERED: ENOXAPARIN SODIUM SQ SCH (13:00)
[2020-01-24] MEDS: MORPHINE SULFATE 2 MG INJ IV PRN ×2 (13:32→15:33)
[2020-01-24] MEDS: ZOCOR 20MG PO SCH (21:18)
[2020-01-25 03:48] VITALS: BP 44/18; O2SAT 94
[2020-01-25 03:53] VITALS: PULSE 68
[2020-01-25] MEDS ORDERED: VANCOMYCIN 1 GRAM/200 ML BAG 1 GM/200 ML PIGGYBACK IV SCH (10:00)
== END 2020-01-25 06:20 | disposition expired | DRG 291 ==
LOC: ED 17:09 → MED SURG 22:56
PROVIDERS: ADMIT Family Medicine; ATTEND Family Medicine
DX: I50.9 Heart failure, unspecified (principal); J18.9 Pneumonia, unspecified organism; I48.20 Chronic atrial fibrillation, unspecified; R09.02 Hypoxemia; R53.1 Weakness; Z79.01 Long term (current) use of anticoagulants; Z79.899 Other long term (current) drug therapy; Z86.79 Personal history of other diseases of the circulatory system; I95.9 Hypotension, unspecified
CPT/HCPCS: 36415; 36600; 51702; 71045; 71260; 80048; 80053; 80202; 81001; 82375; 82728; 82803; 83605; 83615; 83880; 84134; 84484; 85025; 85379; 85610; 86769; 87040; 87086; 87631; 93005; 93041; 94002; 94762; 96365; 96368; 96374; 99291; 99292; U0003; 36000; 99284; J0456; J0696; J1630; J1650; J1940; J2060; J2270; J2930; J3370; A9270-GY